=== PATIENT | male | born 1965 | race American Indian/Alaskan Native ===

== ENCOUNTER 2019-11-02 06:44 | Observation (INO) | payer BC, MEDICAID ==
[2019-11-02] MEDS ORDERED: SODIUM CHLORIDE 0.9% 500 ML 500 ML IV SCH (08:00)
[2019-11-02] MEDS ORDERED: ASPIRIN EC 325 MG TAB PO ONE (08:00)
[2019-11-02] MEDS ORDERED: HEPARIN/NS 5000 UNIT/500ML 1,000 ML IR ONE (08:11)
[2019-11-02] MEDS ORDERED: MIDAZOLAM 2 MG/2 ML INJ ONE (08:11)
[2019-11-02] MEDS ORDERED: fentaNYL 100 MCG/2 ML INJ ONE (08:11)
[2019-11-02] MEDS ORDERED: LIDOCAINE (2%) 20 MG/1 ML VIAL 20 ML MDV INFILTRATI ONE (08:12)
[2019-11-02] MEDS: NITROGLYCERIN SYRINGE 3 ML ONE ×2 (08:48→09:03)
[2019-11-02] MEDS: HEPARIN 10,000 UNITS/10 ML VIAL ONE ×3 (08:49→09:09)
[2019-11-02] MEDS: VERAPAMIL 5 MG/2 ML INJ ONE ×2 (08:49→09:03)
[2019-11-02] MEDS ORDERED: CLOPIDOGREL 300 MG TAB ONE (09:34)
[2019-11-02] MEDS ORDERED: ALUM-MAG HYDROXIDE-SIMETHICONE 200-200-20MG/5ML ORAL LIQD 30 ML ONE (09:34)
--- NOTE | 2019-11-02 10:40 | Cardiac Catherization Report ---
LEFT HEART CATHETERIZATION AND PERCUTANEOUS CORONARY AND INTRAVASCULAR ULTRASOUND AND FRACTIONAL FLOW RESERVE CLINICAL INFORMATION: This is a 54-year-old -[place] gentleman with history of cardiomyopathy that had normalized. A 2013 cardiac catheterization revealed nonobstructive coronary artery disease, 40-50% in the circumflex, dominant; mid LAD 30-40%, here for left heart catheterization for recurrent chest pain with abnormal stress test despite beta ciaran and nitrates. Procedure was done with moderate sedation, started at 9:03 a.m., finished at 9:34 a.m., 31 minutes of moderate sedation. Procedure was done via the right radial artery, sterile technique, local anesthesia, 6-Dominican radial sheath inserted. PROCEDURE FINDINGS: Left system, JL3.5 catheter, left main is large and patent, bifurcates into medium to large caliber LAD, proximal is patent, mid across 2 small diagonals which are patent, has a 90% lesion at the wraparound LAD that is patent. Circumflex AV groove is dominant, small to medium caliber proximal, mid 40-50% AV groove, focal lesions. High OM1 is small caliber vessel. OM2, OM3 are small caliber vessels. Small LPDA. RCA is a small caliber vessel, mid 90% vessel, normal LV function done in INGRID and ADAM view. LVEDP 17 mmHg, LV was 130, aortic is 131/75. No gradient across the aortic valve on pullback. Fractional flow reserve of the LAD. 1. Engaged the left system with an EBU 3.5 guiding catheter. IV heparin was given, attained ACT of 290. 2. Crossed normalized FF wire, crossed into the distal LAD and IFR was 0.84 which was significant. So, next proceeded with percutaneous coronary intervention of the LAD using the same EBU 3.5 guiding catheter, an FFF wire, placed a 2.5 x 12 mm balloon in the mid LAD, inflated at 12 atmospheres. 3. An intravascular ultrasound showed distal reference of 3 and proximal 3.0 x 3.4. 4. Then stented the mid LAD across the 2 small diagonals with a drug-eluting Xience 3.0 x 23 mm inflated at 12 atmospheres. There is mild plaque shift into the ostium of the diagonal to diagonal 1 and diagonal 2 of 30%, but continued CIRILO 3 flow. Then, post-dilated the proximal portion of the stent with a noncompliant 3.25 x 12 balloon at 16 atmospheres. 5. Excellent angiographic result, CIRILO 3 flow, reduced stenosis from 90% to 0, no embolization, continued CIRILO 3 flow into small diagonals, mild plaque shift. Coronary wire was removed. Multiple angiograms, continued CIRILO 3 flow, no dissection or perforation, good stent apposition and expansion noted. 6. A 6-Dominican guiding catheter taken over guidewire, 6-Dominican radial sheath was discontinued. Radial band applied. No hematoma, no bleeding. SUMMARY: 1. Successful PCI of the mid LAD across 2 small diagonals with a drug-eluting Xience 3.0 x 23 mm at 12 atmospheres, post-dilated the proximal portion with a 3.25 x 12. This was done confirmed with IFR of 0.84 and IVUS distal was 3.0 and proximal 3.0 x 3.2. 2. Left main patent, circumflex dominant and AV groove has focal lesions of 30-40%. Focal small OM1, OM2 and OM3 are patent. RCA small nondominant vessel, 90%, mid. Normal LV function. Post-PCI care, aspirin, Plavix 600 daily, hold metformin 48 hours. Discussed in detail with the patient and patient's family and primary general office associate. JOB# [id number] JERICHO/RJ
[2019-11-02] MEDS: METOPROLOL SUCCINATE XL 50 MG TAB PO SCH (15:17)
[2019-11-02] MEDS: LISINOPRIL 5 MG TAB PO SCH (15:18)
[2019-11-03] MEDS: ACETAMINOPHEN 325 MG TAB PO PRN ×2 (00:02→08:34)
[2019-11-03 05:16] LABS: Basophils % (Auto) 0.4 % (0.0-1.8); Eosinophils # (Auto) 0.4 K/mm3 (0.0-0.4); Eosinophils % (Auto) 3.9 % (0.0-4.3); Hematocrit 41.4 % (35.5-45.6); Hemoglobin 13.9 gm/dl (11.8-15.2); Lymphocytes # (Auto) 2.6 K/mm3 (1.2-5.4); Lymphocytes % (Auto) 27.1 % (13.4-35.0); Mean Corpuscular HGB Conc 34 % (32-34); Mean Corpuscular Volume 90 fl (84-94); Monocytes % (Auto) 10.4 % (0.0-7.3); Platelet Count 265 K/mm3 (140-440); Red Blood Count 4.59 M/mm3 (3.65-5.03)
[2019-11-03 05:35] LABS: Creatine Kinase MB 2.1 ng/mL (0.0-4.0)
[2019-11-03 05:36] LABS: BUN/Creatinine Ratio 18; Blood Urea Nitrogen 14 mg/dL (9-20); Calcium 8.7 mg/dL (8.4-10.2); Hemolysis Index 5
--- NOTE | 2019-11-03 08:46 | XRay Report ---
CHEST 1 VIEW INDICATION: post pci. COMPARISON: None FINDINGS: Support devices: None. Heart: Within normal limits. Lungs/Pleura: No acute air space or interstitial disease. Additional findings: None. IMPRESSION: No acute findings. Signer Name: Randall Quintanilla Jr, MD Signed: 11/03/2019 8:42 AM Workstation Name: [id number]
[2019-11-03] MEDS: LISINOPRIL 5 MG TAB PO SCH ×2 (09:25→12:53)
[2019-11-03] MEDS: METOPROLOL SUCCINATE XL 50 MG TAB PO SCH ×2 (09:25→12:43)
[2019-11-03] MEDS ORDERED: ASPIRIN 81 MG TAB CHEW PO SCH (10:00)
[2019-11-03] MEDS ORDERED: CLOPIDOGREL 75 MG TAB PO SCH (10:00)
--- NOTE | 2019-11-03 10:06 | Short Stay Summary ---
Short Stay Documentation Date of service: 11/03/19 - History H&P: obtained from office - Allergies and Medications Current Medications: Allergies No Known Allergies Allergy (Verified 07/16/13 07:15) Home Medications Medication Instructions Recorded Confirmed Last Taken Type Metformin HCl [Metformin] 1,000 mg PO BID 07/16/13 11/02/19 11/01/19 History lisinopriL [Lisinopril] 5 tab PO DAILY 08/04/13 11/02/19 11/01/19 History Atorvastatin [Lipitor Tab] 40 mg PO QHS 11/02/19 11/02/19 11/01/19 History Brimonidine/Timolol 0.2-0.5% 1 drop OS Q12H 11/02/19 11/02/19 11/01/19 History [Combigan 0.2-0.5%] Empagliflozin (Nf) [Jardiance (Nf)] 10 mg PO QAM 11/02/19 11/02/19 11/01/19 History Esomeprazole Magnesium [NexIUM] 40 mg PO QDAY 11/02/19 11/02/19 11/01/19 History ISOSORBIDE MONOnitrate [Imdur ER] 60 mg PO QDAY 11/02/19 11/02/19 11/01/19 History Insulin Glargine,Hum.rec.anlog 15 units SQ QHS 11/02/19 11/02/19 11/01/19 History [Lantus Solostar] Insulin Lispro [Humalog 100 15 units SQ AC 11/02/19 11/02/19 11/01/19 History UNITS/ML Kwikpen] Ketoconazole 2% [Nizoral] 1 applicatio TRANSDERMA BID 11/02/19 11/02/19 11/01/19 History Metoprolol Xl [Metoprolol 50 mg PO QDAY 11/02/19 11/02/19 11/01/19 History SUCCINATE ER TAB] Triamcinolone 0.1% [Kenalog 0.1% 1 applic TP TID 11/02/19 11/02/19 11/01/19 History OINT] acetaZOLAMIDE [Diamox TAB] 250 mg PO BID 11/02/19 11/02/19 11/01/19 History Active Medications Acetaminophen (Tylenol) 650 mg PO Q6H PRN PRN Reason: Pain, Mild (1-3) Last Admin: 11/03/19 08:34 Dose: 650 mg Documented by: Aspirin (Baby Aspirin) 81 mg PO QDAY [facility] Last Admin: 11/03/19 09:23 Dose: 81 mg Documented by: Atorvastatin Calcium (Lipitor) 40 mg PO QHS [facility] Last Admin: 11/02/19 21:38 Dose: 40 mg Documented by: Clopidogrel Bisulfate (Plavix) 75 mg PO QDAY [facility] Last Admin: 11/03/19 09:24 Dose: 75 mg Documented by: Isosorbide Mononitrate (Imdur) 60 mg PO QDAY [facility] Last Admin: 11/03/19 09:25 Dose: Not Given Documented by: Lisinopril (Zestril) 5 mg PO QDAY [facility] Last Admin: 11/03/19 09:25 Dose: Not Given Documented by: Metoprolol Succinate (Metoprolol Xl) 50 mg PO QDAY [facility] Last Admin: 11/03/19 09:25 Dose: Not Given Documented by: - Physical exam General appearance: no acute distress Integumentary: no rash, no growths, no abnormal pigmentation HEENT: Atraumatic, PERRLA Lungs: Clear to auscultation Heart: Regular rate, Normal S1, Normal S2 Gastrointestinal: normoactive bowel sounds Extremities: no ischemia, pulses intact, pulses symmetrical Neurological: Normal gait, Normal speech, Strength at 5/5 X4 ext - Brief post op/procedure progress note Date of procedure: 11/02/19 Pre-op diagnosis: CAD Post-op diagnosis: same Procedure: LHC with PCI - see dictated cath report Anesthesia: local Estimated blood loss: none Condition: stable - Disposition Condition at discharge: Good Disposition: [id number] TO HOME OR SELFCARE - Discharge Diagnoses (1) CAD (coronary artery disease) Status: Chronic (2) Stented coronary artery Status: Chronic (3) Sinus bradycardia Status: Chronic (4) Diabetes Status: Chronic Short Stay Discharge Plan Activity: advance as tolerated Diet: low fat, low cholesterol, low salt, diabetic Wound: open to air, keep clean and dry, per your surgeon's advice Additional Instructions: resume Metformin tomorrow, 11/04/2019 Follow up with: CHINO WATSON NP-C [Primary Care Provider] - 7 Days LUCERO MATTHEW MD [Staff Physician] - 7 Days ([place] office, 11/17/2019 @ 1:15PM) Prescriptions: Clopidogrel [Plavix] 75 mg PO QDAY #90 tablet
[2019-11-03] MEDS ORDERED: traMADol 50 MG TAB PO ONE (12:00)
[2019-11-03 12:05] VITALS: BP 122/68
== END 2019-11-03 12:59 | disposition home or self-care (01) ==
LOC: CATHLABREC 06:44 → 4A 09:37
PROVIDERS: ADMIT Internal Medicine; ATTEND Internal Medicine
DX: I25.10 Atherosclerotic heart disease of native coronary artery without angina pectoris (principal); R42 Dizziness and giddiness; E11.9 Type 2 diabetes mellitus without complications; I42.8 Other cardiomyopathies; I49.3 Ventricular premature depolarization; R94.31 Abnormal electrocardiogram [ECG] [EKG]; F17.200 Nicotine dependence, unspecified, uncomplicated; Z95.1 Presence of aortocoronary bypass graft; Z79.4 Long term (current) use of insulin; Z79.899 Other long term (current) drug therapy
CPT/HCPCS: 36415; 71045; 80048; 82550; 82553; 82962; 84484; 85025; 92978; 93005; 93458; 93571; 96360; 96361; A9270; C1725; C1753; C1769; C1874; C1887; C1894; C9600; G0378; J1644; J2250; J3010; J7040; 85347; 92928; Q9967

== ENCOUNTER 2021-05-06 09:00 | Observation (INO) | payer BC ==
--- NOTE | 2021-05-06 09:37 | Emergency Department Report ---
ED Chest Pain HPI - General Chief Complaint: Chest Pain Stated Complaint: DIZZINESS WITH CHEST PAIN Time Seen by Provider: 05/06/21 09:25 Source: patient Mode of arrival: Ambulatory Limitations: No Limitations - History of Present Illness Initial Comments: Chief complaint: Chest pain HPI: This is a 55-year-old male history of coronary artery disease, c ardiomyopathy, diabetes mellitus who presents with chest pain, dizziness, headache. Throughout the week patient has had chest pain dizziness daily. He has been unable to work. He decided to go to work today. He had a chest pain. He almost fell due to dizziness. He has "thick headache". Chest pain resolved with nitroglycerin. He has not had this type of headache on previous occasion. Headache is severe. 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 Guido According to electronic medical record patient underwent left heart catheterization 04/04/2020: RCA with 50 to 60% lesion, circumflex 80% lesion, diffuse disease with small caliber vessels. Patient previously underwent intervention of the mid LAD in October 2019 with drug-eluting stent according to cardiology report. MD Complaint: chest pain -: Gradual, This morning Onset: during exertion Pain Location: substernal Pain Radiation: RUE Severity scale (0 -10): 4 Quality: tightness Consistency: now resolved Improves With: nitroglycerin Other Symptoms: other (Headache dizziness near syncope) - Related Data Home Medications Medication Instructions Recorded Confirmed Last Taken Metformin HCl [Metformin] 1,000 mg PO BID 07/16/13 05/06/21 11/27/19 1 tab Atorvastatin [Lipitor] 40 mg PO QHS 11/02/19 05/06/21 11/27/19 1 tab Empagliflozin (Nf) [Jardiance (Nf)] 10 mg PO QAM 11/02/19 05/06/21 11/27/19 1 tab Esomeprazole Magnesium [NexIUM] 40 mg PO QDAY 11/02/19 05/06/21 11/27/19 1 tab Insulin Glargine,Hum.rec.anlog 15 units SQ QHS 11/02/19 05/06/21 11/27/19 [Lantus Solostar] Insulin Lispro [Humalog 100 15 units SQ AC 11/02/19 05/06/21 11/26/19 UNITS/ML Kwikpen] Ketoconazole 2% [Nizoral] 1 applicatio TRANSDERMA BID 11/02/19 05/06/21 11/01/19 Triamcinolone 0.1% [Kenalog 0.1% 1 applic TP TID 11/02/19 05/06/21 11/01/19 OINT] acetaZOLAMIDE [Diamox TAB] 250 mg PO BID 11/02/19 05/06/21 11/01/19 Previous Rx's Medication Instructions Recorded Last Taken Type Aspirin [Aspirin BABY CHEW TAB] 81 mg PO QDAY tab.chew 11/03/19 11/26/19 Rx 1 tab Clopidogrel [Plavix] 75 mg PO QDAY #90 tablet 11/03/19 11/27/19 Rx 1 tab Allergies Allergy/AdvReac Type Severity Reaction Status Date / Time No Known Allergies Allergy Verified 07/16/13 07:15 Heart Score - HEART Score History: Highly suspicious EKG: Normal Age: 45-65 Risk factors: 1-2 risk factors Troponin: < normal limit HEART Score: 4 - EKG Read Time Time EKG Completed: 09:11 EKG Read Time: 09:11 - Critical Actions Critical Actions: 4-6 pts:12-16.6% risk of adverse cardiac event. Should be admitted ED Review of Systems ROS: Stated complaint: DIZZINESS WITH CHEST PAIN Other details as noted in HPI Comment: All other systems reviewed and negative Constitutional: denies: chills, fever, malaise Respiratory: denies: cough, shortness of breath Cardiovascular: chest pain Neurological: headache, other (Dizziness) ED Past Medical Hx - Past Medical History Previous Medical History?: Yes Hx Hypertension: Yes Hx Heart Attack/AMI: No Hx Congestive Heart Failure: No Hx Diabetes: Yes Hx Deep Vein Thrombosis: No Hx Pulmonary Embolism: No Hx Renal Disease: No Hx Arthritis: No Hx Seizures: No Hx Asthma: No Hx COPD: No - Surgical History Past Surgical History?: Yes Hx Coronary Stent: Yes (October 2019) Hx Pacemaker: No Hx Cholecystectomy: No Hx Appendectomy: No Additional Surgical History: catartact - Social History Smoking Status: Never Smoker Substance Use Type: None - Medications Home Medications: Home Medications Medication Instructions Recorded Confirmed Last Taken Type Metformin HCl [Metformin] 1,000 mg PO BID 07/16/13 05/06/21 11/27/19 History 1 tab Atorvastatin [Lipitor] 40 mg PO QHS 06/05/06/21 11/27/19 History 1 tab Empagliflozin (Nf) [Jardiance (Nf)] 10 mg PO QAM 11/02/19 05/06/21 11/27/19 History 1 tab Esomeprazole Magnesium [NexIUM] 40 mg PO QDAY 11/02/19 05/06/21 11/27/19 History 1 tab Insulin Glargine,Hum.rec.anlog 15 units SQ QHS 11/02/19 05/06/21 11/27/19 History [Lantus Solostar] Insulin Lispro [Humalog 100 15 units SQ AC 11/02/19 05/06/21 11/26/19 History UNITS/ML Kwikpen] Ketoconazole 2% [Nizoral] 1 applicatio TRANSDERMA BID 11/02/19 05/06/21 11/01/19 History Triamcinolone 0.1% [Kenalog 0.1% 1 applic TP TID 11/02/19 05/06/21 11/01/19 History OINT] acetaZOLAMIDE [Diamox TAB] 250 mg PO BID 11/02/19 05/06/21 11/01/19 History Aspirin [Aspirin BABY CHEW TAB] 81 mg PO QDAY tab.chew 11/03/19 05/06/21 Rx 1 tab Clopidogrel [Plavix] 75 mg PO QDAY #90 tablet 11/03/19 05/06/21 11/27/19 Rx 1 tab ED Physical Exam - General Limitations: No Limitations General appearance: alert, in no apparent distress - Head Head exam: Present: atraumatic, normocephalic - Eye Eye exam: Present: normal appearance - ENT ENT exam: Present: mucous membranes moist - Neck Neck exam: Present: normal inspection, full ROM - Respiratory Respiratory exam: Present: normal lung sounds bilaterally. Absent: respiratory distress, wheezes, rales, rhonchi - Cardiovascular Cardiovascular Exam: Present: regular rate, normal rhythm, normal heart sounds. Absent: systolic murmur, diastolic murmur, rubs, gallop - GI/Abdominal GI/Abdominal exam: Present: soft, normal bowel sounds. Absent: distended, tenderness, guarding, rebound - Rectal Rectal exam: Present: deferred - Extremities Exam Extremities exam: Present: normal inspection - Neurological Exam Neurological exam: Present: alert, oriented X3 - Psychiatric Psychiatric exam: Present: normal affect, normal mood - Skin Skin exam: Present: warm, dry, intact, normal color. Absent: rash ED Course Vital Signs 05/06/21 05/06/21 05/06/21 09:05 09:30 09:32 Temperature 98.8 F Pulse Rate 69 64 Respiratory 18 15 Rate Blood Pressure 117/68 Blood Pressure 118/70 [Right] O2 Sat by Pulse 99 99 99 Oximetry 05/06/21 05/06/21 05/06/21 10:03 10:16 10:30 Temperature Pulse Rate 61 56 L Respiratory 19 16 Rate Blood Pressure 119/69 123/71 121/68 Blood Pressure [Right] O2 Sat by Pulse 100 100 98 Oximetry 05/06/21 05/06/21 05/06/21 10:46 11:00 11:16 Temperature Pulse Rate 57 L 59 L 56 L Respiratory 17 18 17 Rate Blood Pressure 118/64 119/76 115/68 Blood Pressure [Right] O2 Sat by Pulse 99 99 98 Oximetry 05/06/21 11:30 Temperature Pulse Rate 55 L Respiratory 17 Rate Blood Pressure 111/65 Blood Pressure [Right] O2 Sat by Pulse 99 Oximetry JAMES score - James Score Age > 65: (0) No Aspirin use within the Past 7 Days: (1) Yes 3 or more CAD Risk Factors: (1) Yes 2 or more Angina events in past 24 hrs: (1) Yes Known CAD with more than 50% Stenosis: (1) Yes Elevated Cardiac Markers: (0) No ST Deviation Greater than 0.5mm: (0) No JAMES Score: 4 ED Medical Decision Making - Lab Data Result diagrams: 05/06/21 09:57 05/06/21 09:57 Laboratory Results - last 24 hr 05/06/21 05/06/21 09:57 09:57 WBC 11.6 H RBC 5.15 H Hgb 15.0 Hct 47.9 H MCV 93 MCH 29 MCHC 31 L RDW 13.3 Plt Count 286 Lymph % (Auto) 20.1 [place] % (Auto) 8.6 H Eos % (Auto) 3.6 Baso % (Auto) 0.3 Lymph # (Auto) 2.3 [place] # (Auto) 1.0 H Eos # (Auto) 0.4 Baso # (Auto) 0.0 Seg Neutrophils % 67.4 Seg Neutrophils # 7.8 H Sodium 140 Potassium 4.6 Chloride 105.1 Carbon Dioxide 21 L Anion Gap 19 BUN 15 Creatinine 0.9 Estimated GFR > 60 BUN/Creatinine Ratio 17 Glucose 154 H Calcium 9.4 Total Bilirubin 0.40 AST 14 ALT 20 Alkaline Phosphatase 127 Troponin T < 0.010 Total Protein 7.6 Albumin 4.1 Albumin/Globulin Ratio 1.2 Lipase 31 - EKG Data -: EKG Interpreted by Me EKG shows normal: sinus rhythm, axis, intervals, QRS complexes, ST-T waves Rate: normal - EKG Data When compared to previous EKG there are: no significant change, other (EKG compared to EKG obtained 04/01/2020 unchanged) Interpretation: nonspecific ST-T wave brayan 05/06/21 09:36 EKG obtained 910 EKG interpreted by me Rate 60 bpm normal axis normal intervals nonspecific T wave pattern no ST elevation diffuse T wave flattening Q waves in the inferior leads, poor R wave progression anteriorly. 05/06/21 09:37 05/06/21 09:38 - Radiology Data Radiology results: report reviewed Patient Name: DARIEL ESCOBEDO Gender: Male Date of : 1965 Referring Provider: DIMITRY HUSSEIN Organization: [facility] Accession Number: [id number] Requested Date: May 06, 2021 09:39 Report Status: Final Requested Procedure: 1 Procedure Description: CT head/brain wo con Modality: CT Findings Reporting MD: Gibran Velasquez Dictation Time: May 06, 2021 09:11 Training And Quality Manager: Not available Sergeant Of Officers Date: CT head/brain wo con INDICATION / CLINICAL INFORMATION: 55 years Male; severe headache. TECHNIQUE: Routine CT head without contrast. All CT scans at this location are performed using CT dose reduction for ALARA by means of automated exposure control. COMPARISON: None. FINDINGS: BRAIN / INTRACRANIAL CONTENTS: There are scattered areas of decreased attenuation involving cerebral white matter, most notably along the subcortical regions. The findings are nonspecific though may reflect microvascular angiopathy. There also appears to be mild cerebral atrophy. The ventricular system is correspondingly appropriate in size and configuration. There is no clear CT evidence of acute intracranial hemorrhage or significant mass effect. ORBITS: No significant abnormality of visualized orbits. SINUSES / MASTOIDS: No significant abnormality in the visualized paranasal sinuses or mastoid air cells. CRANIOCERVICAL JUNCTION: No significant abnormality. ADDITIONAL FINDINGS: None. IMPRESSION: 1. 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 Signer Name: Gibran Velasquez MD Patient Name: DARIEL ESCOBEDO Gender: Male Date of : 1965 Referring Provider: DIMITRY HUSSEIN Organization: [facility] Accession Number: [id number] Requested Date: May 06, 2021 09:26 Report Status: Final Requested Procedure: 1 Procedure Description: XR chest 1V ap Modality: XR Findings Reporting MD: Javier Jung Dictation Time: May 06, 2021 08:54 Training And Quality Manager: Not available Sergeant Of [employer] Date: CHEST 1 VIEW 05/06/2021 8:49 AM INDICATION / CLINICAL INFORMATION: Chest Pain. COMPARISON: 04/01/20. FINDINGS: SUPPORT DEVICES: None. HEART / MEDIASTINUM: The heart size and pulmonary vasculature are normal. The aorta is normal in caliber. LUNGS / PLEURA: Low lung volumes without other pulmonary or pleural abnormality. No pneumothorax. ADDITIONAL FINDINGS: No significant additional findings. IMPRESSION: Mildly decreased lung volumes without other significant abnormality. Signer Name: Javier Jung MD Signed: 05/06/2021 8:54 AM Workstation Name: [id number] - Medical Decision Making 1. Acute coronary syndrome: Patient has had chest pain throughout the week preventing him from working. He had recurrent chest pain with near syncope today. He has associated lightheadedness and headache. I consulted Dr. Tripathi who recommended Lovenox and agreed with admission. 3. Tension headache versus anginal equivalent versus adverse effect of nitroglycerin: Patient denies headache associated with nitroglycerin on previous occasion. However he has used nitroglycerin more frequently this week. CT head rulex out intracranial hemorrhage. I do not suspect subarachnoid hemorrhage. CBC chemistry troponin unremarkable. EKG x-ray without acute findings Critical care attestation.: If time is entered above; I have spent that time in minutes in the direct care of this critically ill patient, excluding procedure time. ED Disposition Clinical Impression: Acute coronary syndrome, Tension headache Disposition: ADMITTED INPATIENT Is pt being admited?: Yes Does the pt Need Aspirin: No Condition: Stable
[2021-05-06] MEDS ORDERED: traMADol 50 MG TAB PO ONE (09:39)
[2021-05-06] MEDS ORDERED: ASPIRIN 81 MG TAB CHEW PO ONE (09:39)
[2021-05-06] MEDS ORDERED: ACETAMINOPHEN 500 MG TAB PO ONE (09:39)
--- NOTE | 2021-05-06 09:59 | XRay Report ---
CHEST 1 VIEW 05/06/2021 8:49 AM INDICATION / CLINICAL INFORMATION: Chest Pain. COMPARISON: 04/01/20. FINDINGS: SUPPORT DEVICES: None. HEART / MEDIASTINUM: The heart size and pulmonary vasculature are normal. The aorta is normal in william tam. LUNGS / PLEURA: Low lung volumes without other pulmonary or pleural abnormality. No pneumothorax. ADDITIONAL FINDINGS: No significant additional findings. IMPRESSION: Mildly decreased lung volumes without other significant abnormality. Signer Name: Javier Jung MD Signed: 05/06/2021 9:54 AM Workstation Name: [id number]
--- NOTE | 2021-05-06 10:16 | Cat Scan Report ---
CT head/brain wo con INDICATION / CLINICAL INFORMATION: 55 years Male; severe headache. TECHNIQUE: Routine CT head without contrast. All CT scans at this location are performed using CT dos e reduction for ALARA by means of automated exposure control. COMPARISON: None. FINDINGS: BRAIN / INTRACRANIAL CONTENTS: There are scattered areas of decreased attenuation involving cerebral white matter, most notably along the subcortical regions. The findings are nonspecific though may ref lect microvascular angiopathy. There also appears to be mild cerebral atrophy. The ventricular system is correspondingly appropriate in size and configuration. There is no clear CT evidence of acute int racranial hemorrhage or significant mass effect. ORBITS: No significant abnormality of visualized orbits. SINUSES / MASTOIDS: No significant abnormality in the visualized paranasal sinuses or mastoid air xavi ls. CRANIOCERVICAL JUNCTION: No significant abnormality. ADDITIONAL FINDINGS: None. IMPRESSION: 1. 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 Signer Name: Girban Velasquez MD Signed: 05/06/2021 10:11 AM Workstation Name: [id number]
[2021-05-06 11:11] LABS: Basophils % (Auto) 0.3 % (0.0-1.8); Eosinophils # (Auto) 0.4 K/mm3 (0.0-0.4); Eosinophils % (Auto) 3.6 % (0.0-4.3); Hematocrit 47.9 % (35.5-45.6); Lymphocytes # (Auto) 2.3 K/mm3 (1.2-5.4); Lymphocytes % (Auto) 20.1 % (13.4-35.0); Mean Corpuscular HGB Conc 31 % (32-34); Mean Corpuscular Volume 93 fl (84-94); Monocytes % (Auto) 8.6 % (0.0-7.3); Platelet Count 286 K/mm3 (140-440); Red Blood Count 5.15 M/mm3 (3.65-5.03); Red Cell Distribution Width 13.3 % (13.2-15.2)
[2021-05-06 11:35] LABS: Alanine Aminotransferase 20 units/L (7-56); Albumin 4.1 g/dL (3.9-5); BUN/Creatinine Ratio 17; Blood Urea Nitrogen 15 mg/dL (9-20); Calcium 9.4 mg/dL (8.4-10.2); Hemolysis Index 11
--- NOTE | 2021-05-06 12:54 | Electrocardiograph Report ---
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
[2021-05-06] MEDS ORDERED: ENOXAPARIN 100 MG/1 ML INJ SUB-Q STA (13:36)
[2021-05-06] MEDS ORDERED: ONDANSETRON 4 MG/2 ML INJ IV PRN (19:58)
[2021-05-06] MEDS ORDERED: SODIUM CHLORIDE 0.9% 1000 ML 1,000 ML IV SCH (20:00)
[2021-05-06] MEDS ORDERED: HYDROmorphone 1 MG/1 ML INJ IV PRN (20:01)
[2021-05-06] MEDS ORDERED: METOCLOPRAMIDE 10 MG/2 ML INJ IV PRN (20:01)
[2021-05-06] MEDS ORDERED: oxyCODONE /ACETAMINOPHEN 5-325MG TAB PO PRN (20:01)
[2021-05-06] MEDS ORDERED: INSULIN LISPRO 100 UNIT/ML SUB-Q ONE (20:06)
[2021-05-06] MEDS ORDERED: [UNRECOGNIZED DRUG - OTHER] SQ SCH (22:00)
[2021-05-06] MEDS ORDERED: INSULIN GLARGINE HUM REC ANLOG SQ SCH (22:00)
[2021-05-06] MEDS ORDERED: NON-FORMULARY EACH (Metformin Hcl [Metformin] 1,000 MG Tablet) PO SCH (22:00)
[2021-05-06] MEDS ORDERED: INSULN SQ SCH (22:00)
[2021-05-07] MEDS: CLOPIDOGREL 75 MG TAB PO SCH ×2 (00:02→12:55)
[2021-05-07] MEDS: HEPARIN 5,000 UNIT/1 ML VIAL SUB-Q SCH ×3 (00:03→22:08)
[2021-05-07] MEDS: INSULIN GLARGINE 100 UNITS/ML SUB-Q SCH ×2 (00:03→22:08)
[2021-05-07] MEDS: ASPIRIN 81 MG TAB CHEW PO SCH ×2 (00:11→12:55)
[2021-05-07 06:17] LABS: Basophils % (Auto) 0.3 % (0.0-1.8); Eosinophils # (Auto) 0.4 K/mm3 (0.0-0.4); Eosinophils % (Auto) 4.5 % (0.0-4.3); Hematocrit 43.7 % (35.5-45.6); Lymphocytes # (Auto) 2.5 K/mm3 (1.2-5.4); Lymphocytes % (Auto) 29.4 % (13.4-35.0); Mean Corpuscular HGB Conc 32 % (32-34); Mean Corpuscular Volume 94 fl (84-94); Monocytes # (Auto) 0.9 K/mm3 (0.0-0.8); Monocytes % (Auto) 10.9 % (0.0-7.3); Platelet Count 259 K/mm3 (140-440); Red Blood Count 4.66 M/mm3 (3.65-5.03); Red Cell Distribution Width 13.3 % (13.2-15.2)
[2021-05-07 06:34] LABS: Alanine Aminotransferase 17 units/L (7-56); Albumin 3.6 g/dL (3.9-5); BUN/Creatinine Ratio 21; Blood Urea Nitrogen 19 mg/dL (9-20); Hemolysis Index 30
--- NOTE | 2021-05-07 07:11 | History and Physical Report ---
History of Present Illness Date of examination: 05/06/21 Date of admission: 05/06/21 19:58 Chief complaint: Chest pain for 1 week History of present illness: 55-year-old male with history of hypertension, coronary artery disease, status post stent X1, insulin-dependent diabetes and hyperlipidemia comes in for recurrent chest pain of 1 year duration more so for the last 2 days. Patient is followed by [facility]. Patient also has a history of cardiomyopathy. Patient had chest pain throughout this week and is unable to work. He went to work today and had a chest pain. He almost fell because of the dizziness. Chest pain resolved with nitroglycerin. Exacerbating factor is exertion and rest is a relieving factor. Chest pain is about 5-6 on a scale of 1-10. Dull in character. No radiation. No nausea or vomiting. Heart Score - HEART Score History: Highly suspicious EKG: Normal Age: 45-65 Risk factors: 1-2 risk factors Troponin: < normal limit HEART Score: 4 - Past Medical History --Previous Medical History?: Yes --Hypertension: Yes --Diabetes: Yes - Surgical History --Past Surgical History?: Yes --Coronary Stent: Yes (October 2019) Additional Surgical History: catartact - Social History --Smoking Status: Never Smoker --Substance Use Type: None -family history --dad had asthma and mother for for unknown lesions Patient unable to elaborate Review of Systems ROS: Constitutional no weight loss or weight gain no fever or chills HEENT no sore throat no post nasal drip no diplopia Neck no neck stiffness no lymph gland enlargement Chest and lungs no shortness of breath cough or wheezing CVS chest pain for 1 week GI no nausea no vomiting no diarrhea Genitourinary system no dysuria no flank pain Musculoskeletal system no muscle pains no joint pains [employer] no syncope no seizures Skin no rash no itching Psychiatric no depression no homicidal or suicidal tendencies Hematologic no lymphedema or bruising Endocrine no polydipsia no polyuria no cold intolerance no heat intolerance Medications and Allergies Allergies Allergy/AdvReac Type Severity Reaction Status Date / Time No Known Allergies Allergy Verified 07/16/13 07:15 Home Medications Medication Instructions Recorded Confirmed Last Taken Type Metformin HCl [Metformin] 1,000 mg PO BID 07/16/13 05/06/21 11/27/19 History 1 tab Atorvastatin [Lipitor] 40 mg PO QHS 11/02/19 05/06/21 11/27/19 History 1 tab Empagliflozin (Nf) [Jardiance (Nf)] 10 mg PO QAM 11/02/19 05/06/21 11/27/19 History 1 tab Esomeprazole Magnesium [NexIUM] 40 mg PO QDAY 11/02/19 05/06/21 11/27/19 History 1 tab Insulin Glargine,Hum.rec.anlog 15 units SQ QHS 11/02/19 05/06/21 11/27/19 History [Lantus Solostar] Insulin Lispro [Humalog 100 15 units SQ AC 11/02/19 05/06/21 11/26/19 History UNITS/ML Kwikpen] Ketoconazole 2% [Nizoral] 1 applicatio TRANSDERMA BID 11/02/19 05/06/21 11/01/19 History Triamcinolone 0.1% [Kenalog 0.1% 1 applic TP TID 11/02/19 05/06/21 11/01/19 History OINT] acetaZOLAMIDE [Diamox TAB] 250 mg PO BID 11/02/19 05/06/21 11/01/19 History Aspirin [Aspirin BABY CHEW TAB] 81 mg PO QDAY tab.chew 11/03/19 05/06/21 11/26/19 Rx 1 tab Clopidogrel [Plavix] 75 mg PO QDAY #90 tablet 11/03/19 05/06/21 11/27/19 Rx 1 tab Active Meds: Active Medications Acetaminophen (Acetaminophen 325 Mg Tab) 650 mg PO Q4H PRN PRN Reason: Pain MILD(1-3)/Fever >100.5/BE Acetazolamide (Acetazolamide 250 Mg Tab) 250 mg PO BID [facility] Last Admin: 05/07/21 00:00 Dose: 250 mg Documented by: Aspirin (Aspirin 81 Mg Tab Chew) 81 mg PO QDAY [facility] Last Admin: 05/07/21 00:11 Dose: Not Given Documented by: Atorvastatin Calcium (Atorvastatin 40 Mg Tab) 40 mg PO QHS [facility] Last Admin: 05/07/21 00:19 Dose: 40 mg Documented by: Clopidogrel Bisulfate (Clopidogrel 75 Mg Tab) 75 mg PO QDAY [facility] Last Admin: 05/07/21 00:02 Dose: 75 mg Documented by: Heparin Sodium (Porcine) (Heparin 5,000 Unit/1 Ml Vial) 5,000 unit SUB-Q Q12HR [facility] Last Admin: 05/07/21 00:03 Dose: 5,000 unit Documented by: Hydromorphone HCl (Hydromorphone 1 Mg/1 Ml Inj) 0.5 mg IV Q3H PRN PRN Reason: Pain , Severe (7-10) Sodium Chloride (Nacl 0.9% 1000 Ml) 1,000 mls @ 75 mls/hr IV DIRECT [facility] Stop: 05/07/21 08:00 Insulin Glargine (Insulin Glargine 100 Units/Ml) 15 units SUB-Q QHS [facility] Last Admin: 05/07/21 00:03 Dose: 15 units Documented by: Metformin HCl (Metformin 500 Mg Tab) 1,000 mg PO BID [facility] Last Admin: 05/07/21 00:00 Dose: 1,000 mg Documented by: Metoclopramide HCl (Metoclopramide 10 Mg/2 Ml Inj) 10 mg IV Q6H PRN PRN Reason: Nausea And Vomiting Miscellaneous Medication (Empagliflozin (Nf)) 10 mg PO QAM [facility] Ondansetron HCl (Ondansetron 4 Mg/2 Ml Inj) 4 mg IV Q8H PRN PRN Reason: Nausea And Vomiting Oxycodone/Acetaminophen (Oxycodone /Acetaminophen 5-325mg Tab) 1 tab PO Q6H PRN PRN Reason: Pain, Moderate (4-6) Pantoprazole Sodium (Pantoprazole 40 Mg Tab) 40 mg PO DAILY [facility] Sodium Chloride (Sodium Chloride 0.9% 10 Ml Flush Syringe) 10 ml IV BID [facility] Last Admin: 05/07/21 00:11 Dose: 10 ml Documented by: Sodium Chloride (Sodium Chloride 0.9% 10 Ml Flush Syringe) 10 ml IV PRN PRN PRN Reason: LINE FLUSH Exam - Constitutional Vitals: Temp Pulse Resp BP Pulse Ox 98.7 F 56 L 14 101/65 100 05/06/21 19:30 05/06/21 22:30 05/07/21 05:00 05/07/21 06:06 05/07/21 06:06 General appearance: Present: no acute distress, well-nourished - EENT Eyes: Present: PERRL ENT: hearing intact, clear oral mucosa - Neck Neck: Present: supple, normal ROM - Respiratory Respiratory effort: normal Respiratory: bilateral: CTA - Cardiovascular Heart rate: 78 Rhythm: regular Heart Sounds: Present: S1 & S2. Absent: rub, click - Extremities Extremities: pulses symmetrical, No edema Peripheral Pulses: within normal limits - Abdominal General gastrointestinal: Present: soft, non-tender, non-distended, normal bowel sounds Male genitourinary: Present: normal - Integumentary Integumentary: Present: clear, warm, dry - Musculoskeletal Musculoskeletal: gait normal, strength equal bilaterally - Psychiatric Psychiatric: appropriate mood/affect, intact judgment & insight - Neurologic Neurologic: CNII-XII intact, moves all extremities HEART Score - HEART Score EKG: Normal Age: 45-65 Risk factors: 1-2 risk factors Troponin: Troponin T < 0.010 ng/mL (0.00-0.029) 05/07/21 05:13 Troponin: < normal limit - Critical Actions Critical Actions: 4-6 pts:12-16.6% risk of adverse cardiac event. Should be admitted Results - Labs CBC & Chem 7: 05/07/21 05:13 05/06/21 09:57 Labs: Laboratory Last Values WBC 8.5 K/mm3 (4.5-11.0) 05/07/21 05:13 RBC 4.66 M/mm3 (3.65-5.03) 05/07/21 05:13 Hgb 14.0 gm/dl (11.8-15.2) 05/07/21 05:13 Hct 43.7 % (35.5-45.6) 05/07/21 05:13 MCV 94 fl (84-94) 05/07/21 05:13 MCH 30 pg (28-32) 05/07/21 05:13 MCHC 32 % (32-34) 05/07/21 05:13 RDW 13.3 % (13.2-15.2) 05/07/21 05:13 Plt Count 259 K/mm3 (140-440) 05/07/21 05:13 Lymph % (Auto) 29.4 % (13.4-35.0) 05/07/21 05:13 Brooke % (Auto) 10.9 % (0.0-7.3) H 05/07/21 05:13 Eos % (Auto) 4.5 % (0.0-4.3) H 05/07/21 05:13 Baso % (Auto) 0.3 % (0.0-1.8) 05/07/21 05:13 Lymph # (Auto) 2.5 K/mm3 (1.2-5.4) 05/07/21 05:13 Brooke # (Auto) 0.9 K/mm3 (0.0-0.8) H 05/07/21 05:13 Eos # (Auto) 0.4 K/mm3 (0.0-0.4) 05/07/21 05:13 Baso # (Auto) 0.0 K/mm3 (0.0-0.1) 05/07/21 05:13 Seg Neutrophils % 54.9 % (40.0-70.0) 05/07/21 05:13 Seg Neutrophils # 4.7 K/mm3 (1.8-7.7) 05/07/21 05:13 Sodium 140 mmol/L (137-145) 05/06/21 09:57 Potassium 4.6 mmol/L (3.6-5.0) 05/06/21 09:57 Chloride 105.1 mmol/L (98-107) 05/06/21 09:57 Carbon Dioxide 21 mmol/L (22-30) L 05/06/21 09:57 Anion Gap 19 mmol/L 05/06/21 09:57 BUN 15 mg/dL (9-20) 05/06/21 09:57 Creatinine 0.9 mg/dL (0.8-1.3) 05/06/21 09:57 Estimated GFR > 60 ml/min 05/07/21 05:13 BUN/Creatinine Ratio 21 % 05/07/21 05:13 Glucose 154 mg/dL (75-100) H 05/06/21 09:57 Hemoglobin A1c 6.1 % (4-6) H 05/07/21 05:13 Calcium 9.4 mg/dL (8.4-10.2) 05/06/21 09:57 Total Bilirubin 0.40 mg/dL (0.1-1.2) 05/06/21 09:57 AST 14 units/L (5-40) 05/06/21 09:57 ALT 20 units/L (7-56) 05/06/21 09:57 Alkaline Phosphatase 127 units/L (35-129) 05/06/21 09:57 Troponin T < 0.010 ng/mL (0.00-0.029) 05/07/21 05:13 Total Protein 7.6 g/dL (6.3-8.2) 05/06/21 09:57 Albumin 4.1 g/dL (3.9-5) 05/06/21 09:57 Albumin/Globulin Ratio 1.2 % 05/07/21 05:13 Lipase 31 units/L (13-60) 05/06/21 09:57 Short CBC 05/06/21 05/07/21 Range/Units 09:57 05:13 WBC 11.6 H 8.5 (4.5-11.0) K/mm3 Hgb 15.0 14.0 (11.8-15.2) gm/dl Hct 47.9 H 43.7 (35.5-45.6) % Plt Count 286 259 (140-440) K/mm3 BMP 05/06/21 09:57 Sodium 140 Potassium 4.6 Chloride 105.1 Carbon Dioxide 21 L BUN 15 Creatinine 0.9 Glucose 154 H Calcium 9.4 Cardiac Enzymes 05/06/21 05/06/21 05/07/21 Range/Units 09:57 20:06 05:13 Troponin T < 0.010 < 0.010 < 0.010 (0.00-0.029) ng/mL Liver Function 05/06/21 Range/Units 09:57 Total Bilirubin 0.40 (0.1-1.2) mg/dL AST 14 (5-40) units/L ALT 20 (7-56) units/L Alkaline Phosphatase 127 (35-129) units/L Albumin 4.1 (3.9-5) g/dL - Imaging and Cardiology EKG: report reviewed (Normal sinus rhythm heart rate of 67/min no acute ST-T wave changes) Chest x-ray: report reviewed (No acute findings) CT Scan - head: report reviewed Imaging and Cardiology: Head CT Microvascular angiopathy as described above without CT evidence of acute intracranial hemorrhage Assessment and Plan Advance Directives: Yes (Full code) VTE prophylaxis?: Chemical Plan of care discussed with patient/family: Yes - Patient Problems (1) Acute coronary syndrome Current Visit: Yes Status: Acute Plan to address problem: Serial troponins and Lexiscan if possible Patient will have to stay till Saturday to get the Lexiscan Cardiology consult requested (2) Near syncope Current Visit: Yes Status: Acute Plan to address problem: Echocardiogram and carotid duplex scan (3) GERD (gastroesophageal reflux disease) Current Visit: No Status: Chronic Qualifiers: Esophagitis presence: without esophagitis Plan to address problem: On PPIs (4) CAD (coronary artery disease) Current Visit: No Status: Chronic Plan to address problem: Patient is on aspirin and Plavix (5) Hypertension Current Visit: Yes Status: Chronic Qualifiers: Hypertension type: primary hypertension Qualified Code(s): I10 - Essential (primary) hypertension Plan to address problem: Continue antihypertensives and adjust medications (6) IDDM (insulin dependent diabetes mellitus) Current Visit: Yes Status: Chronic Plan to address problem: Continue insulin, Jardiance and coverage Check hemoglobin A1c Accu-Cheks and coverage per protocol (7) Hyperlipidemia Current Visit: Yes Status: Chronic Qualifiers: Hyperlipidemia type: mixed hyperlipidemia Qualified Code(s): E78.2 - Mixed hyperlipidemia Plan to address problem: Continue statins (8) DVT prophylaxis Current Visit: No Status: Acute Plan to address problem: On heparin and GI prophylaxis (9) Advance care planning Current Visit: Yes Status: Acute
[2021-05-07] MEDS ORDERED: NON-FORMULARY EACH (Esomeprazole Magnesium [Nexium] 40 MG Capsule.Dr) PO SCH (10:00)
[2021-05-07] MEDS ORDERED: EMPAGLIFLOZIN 10 MG PO SCH (10:00)
--- NOTE | 2021-05-07 10:44 | Event Note ---
Patient seen and examined. Full consultation dictated. Thank you.
--- NOTE | 2021-05-07 12:04 | Progress Note ---
Assessment and Plan Assessment and plan: History of present illness: 55-year-old male with history of hypertension, coronary artery disease, status post stent X1, insulin-dependent diabetes and hyperlipidemia comes in for recurrent chest pain of 1 year duration more so for the last 2 days. Patient is followed by [facility]. Patient also has a history of cardiomyopathy. Patient had chest pain throughout this week and is unable to work. He went to work today and had a chest pain. He almost fell because of the dizziness. Chest pain resolved with nitroglycerin. Exacerbating factor is exertion and re st is a relieving factor. Chest pain is about 5-6 on a scale of 1-10. Dull in character. No radiation. No nausea or vomiting. Hospital Course 05/07: Lexiscan tomorrow. NPO midnight. Restarted home lisinsopril and imdur. Can restart jiardiance but non forumulary. Insulin coverage with home regimen of humalog and lantus as specified below. Assessment and Plan: (1) Acute coronary syndrome Current Visit: Yes Status: Acute Plan to address problem: Serial troponins and Lexiscan if possible Patient will have to stay till Saturday to get the Lexiscan Cardiology consult requested on admission. (2) Near syncope Current Visit: Yes Status: Acute Plan to address problem: Echocardiogram and carotid duplex scan (3) GERD (gastroesophageal reflux disease) Current Visit: No Status: Chronic Qualifiers: Esophagitis presence: without esophagitis Plan to address problem: On PPIs (4) CAD (coronary artery disease) Current Visit: No Status: Chronic Plan to address problem: Patient is on aspirin and Plavix Hx of stent x 1 [address] Guido Resume home lisinopril 2.5 mg po daily, imdur 30 mg po daily, atorvastatin 40 mg po qhs (5) Hypertension Current Visit: Yes Status: Chronic Qualifiers: Hypertension type: primary hypertension Qualified Code(s): I10 - Essential (primary) hypertension Plan to address problem: Continue antihypertensives and adjust medications (6) type 2 diabetes with hyperglycemia Current Visit: Yes Status: Chronic Plan to address problem: Continue insulin, Jardiance and coverage Takes Humalog 11 units tid before meals. Takes Lantus 14 units qhs. Check hemoglobin A1c Accu-Cheks and coverage per protocol (7) Hyperlipidemia Current Visit: Yes Status: Chronic Qualifiers: Hyperlipidemia type: mixed hyperlipidemia Qualified Code(s): E78.2 - Mixed hyperlipidemia Plan to address problem: Continue statins (8) DVT prophylaxis Current Visit: No Status: Acute Plan to address problem: On heparin and GI prophylaxis (9) Advance care planning Current Visit: Yes Status: Acute History Interval history: Very pleasant 55-year-old male who presented initially for chest pain. He states that he has no complaints of chest pain today. He understands that stress test will be on Saturday and will be n.p.o. at midnight. Hospitalist Physical - Physical exam Narrative exam: Physical Exam: VITAL SIGNS: Reviewed. GENERAL: The patient appears normally developed, Vital signs as documented. HEAD: No signs of head trauma. EYES: Pupils are equal. Extraocular motions intact. EARS: Hearing grossly intact. MOUTH: Oropharynx is normal. NECK: No adenopathy, no JVD. CHEST: Chest with clear breath sounds bilaterally. No wheezes, rales, or rhonchi. CARDIAC: Regular rate and rhythm. S1 and S2, without murmurs, gallops, or rubs. VASCULAR: No Edema. Peripheral pulses normal and equal in all extremities. ABDOMEN: Soft, non tender and non distended. No rebound or guarding, and no masses palpated. Bowel Sounds normal. MUSCULOSKELETAL: Good range of motion of all major joints. Extremities without clubbing, cyanosis or edema. NEUROLOGIC EXAM: Alert and oriented x 4. no focal sensory or strength deficits. PSYCHIATRIC: Mood normal. SKIN: detail exam as documented in skin assessment - Constitutional Vitals: Temp Pulse Resp BP Pulse Ox 98.6 F 52 L 15 106/65 98 05/07/21 09:03 05/07/21 09:03 05/07/21 09:03 05/07/21 09:03 05/07/21 09:03 General appearance: Present: no acute distress, well-nourished HEART Score - HEART Score EKG: Normal Age: 45-65 Risk factors: 1-2 risk factors Troponin: Troponin T < 0.010 ng/mL (0.00-0.029) 05/07/21 11:13 Troponin: < normal limit - Critical Actions Critical Actions: 4-6 pts:12-16.6% risk of adverse cardiac event. Should be admitted Results - Labs CBC & Chem 7: 05/07/21 05:13 05/07/21 05:13 Labs: Laboratory Last Values WBC 8.5 K/mm3 (4.5-11.0) 05/07/21 05:13 RBC 4.66 M/mm3 (3.65-5.03) 05/07/21 05:13 Hgb 14.0 gm/dl (11.8-15.2) 05/07/21 05:13 Hct 43.7 % (35.5-45.6) 05/07/21 05:13 MCV 94 fl (84-94) 05/07/21 05:13 MCH 30 pg (28-32) 05/07/21 05:13 MCHC 32 % (32-34) 05/07/21 05:13 RDW 13.3 % (13.2-15.2) 05/07/21 05:13 Plt Count 259 K/mm3 (140-440) 05/07/21 05:13 Lymph % (Auto) 29.4 % (13.4-35.0) 05/07/21 05:13 [place] % (Auto) 10.9 % (0.0-7.3) H 05/07/21 05:13 Eos % (Auto) 4.5 % (0.0-4.3) H 05/07/21 05:13 Baso % (Auto) 0.3 % (0.0-1.8) 05/07/21 05:13 Lymph # (Auto) 2.5 K/mm3 (1.2-5.4) 05/07/21 05:13 [place] # (Auto) 0.9 K/mm3 (0.0-0.8) H 05/07/21 05:13 Eos # (Auto) 0.4 K/mm3 (0.0-0.4) 05/07/21 05:13 Baso # (Auto) 0.0 K/mm3 (0.0-0.1) 05/07/21 05:13 Seg Neutrophils % 54.9 % (40.0-70.0) 05/07/21 05:13 Seg Neutrophils # 4.7 K/mm3 (1.8-7.7) 05/07/21 05:13 Sodium 136 mmol/L (137-145) L 05/07/21 05:13 Potassium 4.0 mmol/L (3.6-5.0) 05/07/21 05:13 Chloride 105.0 mmol/L (98-107) 05/07/21 05:13 Carbon Dioxide 17 mmol/L (22-30) L 05/07/21 05:13 Anion Gap 18 mmol/L 05/07/21 05:13 BUN 19 mg/dL (9-20) 05/07/21 05:13 Creatinine 0.9 mg/dL (0.8-1.3) 05/07/21 05:13 Estimated GFR > 60 ml/min 05/07/21 05:13 BUN/Creatinine Ratio 21 % 05/07/21 05:13 Glucose 167 mg/dL (75-100) H 05/07/21 05:13 Hemoglobin A1c 6.1 % (4-6) H 05/07/21 05:13 Calcium 9.0 mg/dL (8.4-10.2) 05/07/21 05:13 Total Bilirubin 0.40 mg/dL (0.1-1.2) 05/07/21 05:13 AST 15 units/L (5-40) 05/07/21 05:13 ALT 17 units/L (7-56) 05/07/21 05:13 Alkaline Phosphatase 109 units/L (35-129) 05/07/21 05:13 Troponin T < 0.010 ng/mL (0.00-0.029) 05/07/21 11:13 Total Protein 6.7 g/dL (6.3-8.2) 05/07/21 05:13 Albumin 3.6 g/dL (3.9-5) L 05/07/21 05:13 Albumin/Globulin Ratio 1.2 % 05/07/21 05:13 Lipase 31 units/L (13-60) 05/06/21 09:57 Active Medications - Current Medications Current Medications: Generic Name Dose Route Start Last Admin Trade Name Freq PRN Reason Stop Dose Admin Acetaminophen 650 mg 05/06/21 19:58 Acetaminophen 325 Mg Tab PO Q4H PRN Pain MILD(1-3)/Fever >100.5/BE Acetazolamide 250 mg 05/06/21 22:00 05/07/21 00:00 Acetazolamide 250 Mg Tab PO 250 mg BID [facility] Administration Aspirin 81 mg 05/06/21 21:00 05/07/21 00:11 Aspirin 81 Mg Tab Chew PO Not Given QDAY [facility] Atorvastatin Calcium 40 mg 05/06/21 22:00 05/07/21 00:19 Atorvastatin 40 Mg Tab PO 40 mg QHS [facility] Administration Clopidogrel Bisulfate 75 mg 05/06/21 21:00 05/07/21 00:02 Clopidogrel 75 Mg Tab PO 75 mg QDAY [facility] Administration Heparin Sodium (Porcine) 5,000 unit 05/06/21 22:00 05/07/21 00:03 Heparin 5,000 Unit/1 Ml Vial SUB-Q 5,000 unit Q12HR [facility] Administration Hydromorphone HCl 0.5 mg 05/06/21 20:01 Hydromorphone 1 Mg/1 Ml Inj IV Q3H PRN Pain , Severe (7-10) Insulin Glargine 15 units 05/06/21 22:00 05/07/21 00:03 Insulin Glargine 100 Units/Ml SUB-Q 15 units QHS [facility] Administration Metformin HCl 1,000 mg 05/06/21 22:00 05/07/21 00:00 Metformin 500 Mg Tab PO 1,000 mg BID [facility] Administration Metoclopramide HCl 10 mg 05/06/21 20:01 Metoclopramide 10 Mg/2 Ml Inj IV Q6H PRN Nausea And Vomiting Miscellaneous Medication 10 mg 05/07/21 10:00 Empagliflozin (Nf) PO QAM [facility] Ondansetron HCl 4 mg 05/06/21 19:58 Ondansetron 4 Mg/2 Ml Inj IV Q8H PRN Nausea And Vomiting Oxycodone/Acetaminophen 1 tab 05/06/21 20:01 Oxycodone /Acetaminophen 5-325mg Tab PO Q6H PRN Pain, Moderate (4-6) Pantoprazole Sodium 40 mg 05/07/21 10:00 Pantoprazole 40 Mg Tab PO DAILY [facility] Sodium Chloride 10 ml 05/06/21 22:00 05/07/21 00:11 Sodium Chloride 0.9% 10 Ml Flush Syringe IV 10 ml BID [facility] Administration Sodium Chloride 10 ml 05/06/21 19:58 Sodium Chloride 0.9% 10 Ml Flush Syringe IV PRN PRN LINE FLUSH
[2021-05-07] MEDS: PANTOPRAZOLE 40 MG TAB PO SCH (12:55)
[2021-05-07] MEDS: metFORMIN 500 MG TAB PO SCH ×3 (12:55→22:07)
--- NOTE | 2021-05-07 13:13 | Consultation ---
DATE OF CONSULTATION: 05/07/2021 CARDIOLOGY CONSULTATION REFERRING PHYSICIAN: Hospitalist service. [employer] ARCHITECT: Dr. Guido. REASON FOR CONSULTATION: Advice regarding chest pain. HISTORY OF PRESENT ILLNESS: The patient is a pleasant 55-year-old gentleman with known history of coronary artery disease, previous cardiomyopathy, which has normalized, between 2013 and 2019, history of diabetes. He is seen on telemetry. He is currently chest pain free. He has chest pain that he described as sharp and tight, sometimes with exertion. No syncope or presyncope. He does have shortness of breath with the episode. Has not had shortness of breath in some time. No fevers, chills, nausea or vomiting. No bleeding or hematemesis. No skin rashes, cold or heat intolerance. No blurred vision. ALLERGIES: No known drug, food, or environmental allergies. INPATIENT AND OUTPATIENT MEDICATIONS: Reviewed. REVIEW OF SYSTEMS: As per HPI. Chest pain episode has resolved. PHYSICAL EXAMINATION: VITAL SIGNS: Blood pressure is 106/65. He is afebrile. Tele reveals sinus rhythm in the 50s. No dysrhythmia. His O2 sat is 98% on room air. GENERAL: This is a middle-aged gentleman in no apparent distress, oriented x 3. HEENT: Sclerae are anicteric. PERRL. NECK: Supple. No masses, no JVD. CHEST: Clear to auscultation bilaterally. Good air movement. CARDIOVASCULAR: Regular rhythm, S1, S2. ABDOMEN: Soft, nontender, nondistended, normoactive bowel sounds in all 4 quadrants. No masses or bruits. EXTREMITIES: No cyanosis, clubbing, edema. Good peripheral pulses. SKIN: Warm, dry and intact. No rashes. IMAGING DATA: EKG reveals sinus rhythm, no acute ST segment shift. No acute changes. He also complains of a headache and thus, a head CT was also done, which shows microvascular angiopathy, but no intracranial hemorrhage. Chest x-ray shows no acute findings. LABORATORY DATA: CBC is unremarkable. Sodium is 136, potassium is 4.0, creatinine is 0.9. Troponins negative x 2. ASSESSMENT: In summary, the patient is a pleasant 55-year-old gentleman who presents with chest pain with typical and atypical features and shortness of breath, history of ischemic cardiomyopathy, multiple PCIs, clinically stable. EKG unremarkable as well as normal troponins and furthermore is asymptomatic at this point. Continue current medications, stress test and echocardiogram. Further plans contingent on these results. Thank you for this consultation. We will be happy to follow along with you. TID: [id number] RECEIPT: [id number] GUANAKO/EULA/MING
[2021-05-07] MEDS: acetaZOLAMIDE 250 MG TAB PO SCH ×3 (13:38→22:07)
[2021-05-07] MEDS: INSULIN LISPRO 100 UNIT/ML SUB-Q SCH (19:07)
[2021-05-07] MEDS: LISINOPRIL 5 MG TAB PO SCH (19:08)
[2021-05-08] MEDS ORDERED: REGADENOSON 0.4 MG/5 ML INJ IV ONE (06:53)
[2021-05-08] MEDS: INSULIN LISPRO 100 UNIT/ML SUB-Q SCH ×3 (08:00→22:00)
[2021-05-08] MEDS: metFORMIN 500 MG TAB PO SCH ×2 (10:19→12:43)
[2021-05-08] MEDS: ASPIRIN 81 MG TAB CHEW PO SCH (10:26)
[2021-05-08] MEDS: HEPARIN 5,000 UNIT/1 ML VIAL SUB-Q SCH ×2 (10:26→22:00)
[2021-05-08] MEDS: ACETAMINOPHEN 325 MG TAB PO PRN ×2 (10:49→13:53)
--- NOTE | 2021-05-08 11:06 | Nuclear Medicine Report ---
APPROVED REPORT Exam: Nuclear Stress Test Indication: Chest pain Patient Location: [address] [place], [place] [address]ETRY Room #: 483 Ht: 5 ft 11 in Wt: 155 lbs BSA: 1.89 m2 HR: 53 bpmBP: 100/57 mmHgBMI: 21.61 Rhythm: Sinus Bradycardia Stress Test Details Stress Test: Pharmacologic stress testing performed using 0.4 mg of regadenoson per 5 mL given IV over 10 seconds. Reason for pharmacologic stress test: physical limitation. HR Resting HR: 53 bpm Max HR Achieved: 116 bpm Max Heart Rate (APMHR): 166 bpm Target HR (85% APMHR): 141 bpm % of APMHR: 69 Recovery HR: 94 bpm BP Resting BP: 100/57 mmHg Max BP: 122/68 mmHg Recovery BP: 98/54 mmHg ECG Resting ECG: Sinus Bradycardia Stress ECG: Sinus Tachycardia ST Change: None Arrhythmia: None Recovery ECG: Sinus Rhythm Recovery ST Change: None Recovery Arrhythmia: None Clinical Reason for Termination: Completed protocol Stress Symptoms: Emesis NM EXAM: Myocardial Perfusion REST/STRESS Imaging Protocol: Rest Tc-99m/Stress Tc-99m 1 day Resting Data Rest SPECT myocardial perfusion imaging was performed in supine position 45 minutes following the intravenous injection of 10 mCi of Tc-99m Myoview. Time of rest injection: 0730 Pharmacologic Stress Pharmacologic stress test was performed by injecting Regadenoson 0.4 mg IV push followed by the intravenous injection of 28 mCi of Tc-99m Myoview. Time of stress injection: 1014 Gated Stress SPECT was performed 30 minutes after stress injection. The images were gated to evaluate regional wall motion and calculate left ventricular ejection fraction. Study Quality Study: excellent Lung Uptake: Normal Study Data TID = 1.17. Perfusion Wall Motion Post stress LVEF was 60%,with normal wall motion. Nuclear Conclusion ECG Findings: negative for ischemia Clinical Findings: negative for ischemia Nuclear Findings: negative for ischemia Exercise Capacity: not assessed Left Ventricular Function: normal Risk Study: low No significant ischemia noted,fixed perfusion defects noted in inferior and inferolateral segments.Normal LV systolic function noted.
--- NOTE | 2021-05-08 12:04 | Progress Note ---
Assessment and Plan 55-year-old male with a past medical history of coronary artery disease s/p multiple PCI, ischemic cardiomyopathy, diabetes report with complaint of chest pain CAD s/p PCI HTN Ischemic cardiomyopathy Lexiscan MPI stress 05/08/2021-no significant ischemia noted fixed perfusion defect noted in inferior and inferior lateral segments normal LV systolic function noted Echo 10/11/2020-EF 45 to 50%, inferior lateral wall appears moderately hypokinetic, RV systolic function is normal Plan: EKG showed no acute ischemic changes. Troponins negative x4. IL ruled out patient currently chest pain-free Patient had a negative stress test Continue present management Cardiac status is stable for discharge Patient has a follow-up appointment with Dr. Guido 05/30/2021 at 2 PM in our [place] location. Phone #[phone] Patient seen in conjunction with Dr. Shearer who agrees with this plan of care - Patient Problems (1) Hyperlipidemia Current Visit: Yes Status: Chronic Qualifiers: Hyperlipidemia type: mixed hyperlipidemia Qualified Code(s): E78.2 - Mixed hyperlipidemia (2) Hypertension Current Visit: Yes Status: Chronic Qualifiers: Hypertension type: primary hypertension Qualified Code(s): I10 - Essential (primary) hypertension (3) IDDM (insulin dependent diabetes mellitus) Current Visit: Yes Status: Chronic (4) Coronary artery disease Current Visit: No Status: Acute Qualifiers: Associated angina: with stable angina (5) CAD (coronary artery disease) Current Visit: No Status: Chronic (6) Stented coronary artery Current Visit: No Status: Chronic (7) Cardiomyopathy Current Visit: No Status: Resolved Subjective Date of service: 05/08/21 Principal diagnosis: chest pain Interval history: Patient for Lexiscan stress test this morning. Patient in no acute distress and denies any chest pain Sinus rhythm trending upper 50s to low 60s on monitor Objective Vital Signs Temp Pulse Resp BP Pulse Ox 05/08/21 10:49 16 05/08/21 10:01 101/61 05/08/21 10:00 114/63 05/08/21 09:59 122/68 05/08/21 09:58 107/71 05/08/21 09:56 98/59 05/08/21 09:29 100/57 05/08/21 07:56 97.8 F 57 L 18 95/50 100 05/08/21 04:23 97.8 F 59 L 16 101/57 97 05/08/21 00:18 97.5 F L 65 16 102/52 98 05/07/21 23:43 95 05/07/21 22:00 65 05/07/21 20:22 98.4 F 64 16 127/67 95 05/07/21 19:08 67 117/57 05/07/21 19:06 65 05/07/21 19:05 71 97 - Physical Examination General: No Apparent Distress HEENT: Positive: PERRL Neck: Positive: trachea midline Cardiac: Positive: Reg Rate and Rhythm Lungs: Positive: Normal Breath Sounds Neuro: Positive: Grossly Intact Abdomen: Positive: Soft Skin: Negative: Rash, Suspicious Lesions, Ulceration Extremities: Present: upper extr. pulses. Absent: edema - Imaging and Cardiology EKG: report reviewed (Normal sinus rhythm heart rate of 67/min no acute ST-T wave changes) - Telemetry EKG Rhythm: Sinus Rhythm - EKG Sinus rhythms and dysrhythmias: sinus rhythm
--- NOTE | 2021-05-08 12:04 | Discharge Summary ---
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 Patient is followed by [facility]. Patient also has a history of cardiomyopathy. Patient had chest pain throughout this week and is unable to work. He went to work today and had a chest pain. He almost fell because of the dizziness. Chest pain resolved with nitroglycerin. Exacerbating factor is exertion and rest is a relieving factor. Chest pain is about 5-6 on a scale of 1-10. Dull in character. No radiation. No nausea or vomiting. Hospital Course 05/07: Lexiscan tomorrow. NPO midnight. Restarted home lisinsopril and imdur. Can restart jiardiance but non forumulary. Insulin coverage with home regimen of humalog and lantus as specified below. 05/08: Lexiscan negative for ischemia. Patient can follow up as an outpatient with his primary food processing chemist. Assessment and Plan: (1) Acute coronary syndrome Current Visit: Yes Status: Acute Plan to address problem: Serial troponins and Lexiscan if possible Patient will have to stay till Saturday to get the Lexiscan Cardiology consult requested on admission. (2) Near syncope Current Visit: Yes Status: Acute Plan to address problem: Echocardiogram and carotid duplex scan (3) GERD (gastroesophageal reflux disease) Current Visit: No Status: Chronic Qualifiers: Esophagitis presence: without esophagitis Plan to address problem: On PPIs (4) CAD (coronary artery disease) Current Visit: No Status: Chronic Plan to address problem: Patient is on aspirin and Plavix Hx of stent x 1 [address] Guido Resume home lisinopril 2.5 mg po daily, imdur 30 mg po daily, atorvastatin 40 mg po qhs (5) Hypertension Current Visit: Yes Status: Chronic Qualifiers: Hypertension type: primary hypertension Qualified Code(s): I10 - Essential (primary) hypertension Plan to address problem: Continue antihypertensives and adjust medications (6) type 2 diabetes with hyperglycemia Current Visit: Yes Status: Chronic Plan to address problem: Continue insulin, Jardiance and coverage Takes Humalog 11 units tid before meals. Takes Lantus 14 units qhs. Check hemoglobin A1c Accu-Cheks and coverage per protocol (7) Hyperlipidemia Current Visit: Yes Status: Chronic Qualifiers: Hyperlipidemia type: mixed hyperlipidemia Qualified Code(s): E78.2 - Mixed hyperlipidemia Plan to address problem: Continue statins (8) DVT prophylaxis Current Visit: No Status: Acute Plan to address problem: On heparin and GI prophylaxis (9) Advance care planning Current Visit: Yes Status: Acute Disposition: 01 HOME / SELF CARE / HOMELESS Final Discharge Diagnosis (Prints w/discharge instructions): Acute coronary syndrome Time spent for discharge: 25 Core Measure Documentation - Palliative Care Palliative Care/ Comfort Measures: Not Applicable - Core Measures Any of the following diagnoses?: none Exam - Physical Exam Narrative exam: Physical Exam: VITAL SIGNS: Reviewed. GENERAL: The patient appears normally developed, Vital signs as documented. HEAD: No signs of head trauma. EYES: Pupils are equal. Extraocular motions intact. EARS: Hearing grossly intact. MOUTH: Oropharynx is normal. NECK: No adenopathy, no JVD. CHEST: Chest with clear breath sounds bilaterally. No wheezes, rales, or rhonchi. CARDIAC: Regular rate and rhythm. S1 and S2, without murmurs, gallops, or rubs. VASCULAR: No Edema. Peripheral pulses normal and equal in all extremities. ABDOMEN: Soft, non tender and non distended. No rebound or guarding, and no masses palpated. Bowel Sounds normal. MUSCULOSKELETAL: Good range of motion of all major joints. Extremities without clubbing, cyanosis or edema. NEUROLOGIC EXAM: Alert and oriented x 4. no focal sensory or strength deficits. PSYCHIATRIC: Mood normal. SKIN: detail exam as documented in skin assessment - Constitutional Vitals: Temp Pulse Resp BP Pulse Ox 97.8 F 57 L 16 101/61 100 05/08/21 07:56 05/08/21 07:56 05/08/21 10:49 05/08/21 10:01 05/08/21 07:56 Plan Activity: no restrictions Weight Bearing Status: Full Weight Bearing Diet: low fat, low cholesterol, low salt Plan of Treatment: Mr Hui. You are admitted for chest pain. Cardiology team was consulted this admission and they recommended stress test as well as echocardiogram. We completed a stress test which was negative for acute ischemia. Your echocardiogram was normal. We recommend you follow-up as an outpatient with your primary care food processing chemist Dr. Guido. Follow up with: PRIMARY CARE, [Primary Care Provider] - 7 Days
[2021-05-08] MEDS: PANTOPRAZOLE 40 MG TAB PO SCH (12:41)
[2021-05-08] MEDS: CLOPIDOGREL 75 MG TAB PO SCH (12:43)
[2021-05-08] MEDS: LISINOPRIL 5 MG TAB PO SCH ×2 (13:11→13:16)
[2021-05-08] MEDS ORDERED: SODIUM CHLORIDE 0.9% 500 ML 500 ML IV ONE ×2 (16:00)
[2021-05-08] MEDS ORDERED: SODIUM CHLORIDE 0.9% 500 ML 500 ML ONE (19:01)
[2021-05-08] MEDS: BUTALB/ACETAMINOPHEN/CAFFEINE TAB PO PRN (20:53)
[2021-05-08] MEDS: INSULIN GLARGINE 100 UNITS/ML SUB-Q SCH (22:00)
[2021-05-09] MEDS: BUTALB/ACETAMINOPHEN/CAFFEINE TAB PO PRN (04:07)
[2021-05-09] MEDS: metFORMIN 500 MG TAB PO SCH (08:02)
[2021-05-09] MEDS: INSULIN LISPRO 100 UNIT/ML SUB-Q SCH ×2 (08:03→12:04)
--- NOTE | 2021-05-09 09:07 | Discharge Summary ---
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 Patient is followed by [facility]. Patient also has a history of cardiomyopathy. Patient had chest pain throughout this week and is unable to work. He went to work today and had a chest pain. He almost fell because of the dizziness. Chest pain resolved with nitroglycerin. Exacerbating factor is exertion and rest is a relieving factor. Chest pain is about 5-6 on a scale of 1-10. Dull in character. No radiation. No nausea or vomiting. Hospital Course 05/07: Lexiscan tomorrow. NPO midnight. Restarted home lisinsopril and imdur. Can restart jiardiance but non forumulary. Insulin coverage with home regimen of humalog and lantus as specified below. 05/08: Lexiscan negative for ischemia. Patient can follow up as an outpatient with his primary credit review analyst. Patient was dizzy/headache after stress test today. Blood pressure on cuff 105/70. Suspect medication induced. WIll d/c imdur. Ordered 500 cc bolus. Given tylenol by RN. will order fiorcet as needed. Discharge was held as a result of the above symptoms. 05/09: Patient has no further dizziness and blood pressure remained stable. Therefore, patient will discharge home. Dedicated discharge time 32 minutes. Assessment and Plan: (1) Acute coronary syndrome Current Visit: Yes Status: Acute Plan to address problem: Serial troponins and Lexiscan if possible Patient will have to stay till Saturday to get the Lexiscan Cardiology consult requested on admission. (2) Near syncope Current Visit: Yes Status: Acute Plan to address problem: Echocardiogram and carotid duplex scan (3) GERD (gastroesophageal reflux disease) Current Visit: No Status: Chronic Qualifiers: Esophagitis presence: without esophagitis Plan to address problem: On PPIs (4) CAD (coronary artery disease) Current Visit: No Status: Chronic Plan to address problem: Patient is on aspirin and Plavix Hx of stent x 1 2 [address] Guido Resume home lisinopril 2.5 mg po daily, imdur 30 mg po daily, atorvastatin 40 mg po qhs (5) Hypertension Current Visit: Yes Status: Chronic Qualifiers: Hypertension type: primary hypertension Qualified Code(s): I10 - Essential (primary) hypertension Plan to address problem: Continue antihypertensives and adjust medications (6) type 2 diabetes with hyperglycemia Current Visit: Yes Status: Chronic Plan to address problem: Continue insulin, Jardiance and coverage Takes Humalog 11 units tid before meals. Takes Lantus 14 units qhs. Check hemoglobin A1c Accu-Cheks and coverage per protocol (7) Hyperlipidemia Current Visit: Yes Status: Chronic Qualifiers: Hyperlipidemia type: mixed hyperlipidemia Qualified Code(s): E78.2 - Mixed hyperlipidemia Plan to address problem: Continue statins (8) DVT prophylaxis Current Visit: No Status: Acute Plan to address problem: On heparin and GI prophylaxis Disposition: 01 HOME / SELF CARE / HOMELESS Final Discharge Diagnosis (Prints w/discharge instructions): Diabetes mellitus type 2 chest pain with etiology likely GERD, near syncope, coronary artery disease, Core Measure Documentation - Palliative Care Palliative Care/ Comfort Measures: Not Applicable - Core Measures Any of the following diagnoses?: none Exam - Constitutional Vitals: Temp Pulse Resp BP Pulse Ox 98.0 F 54 L 14 104/59 97 05/09/21 03:12 05/09/21 03:12 05/09/21 03:12 05/09/21 03:12 05/09/21 03:12 General appearance: Present: no acute distress, well-nourished - EENT Eyes: Present: PERRL ENT: hearing intact, clear oral mucosa - Neck Neck: Present: supple, normal ROM - Respiratory Respiratory effort: normal Respiratory: bilateral: CTA - Cardiovascular Heart Sounds: Present: S1 & S2. Absent: rub, click - Extremities Extremities: pulses symmetrical, No edema Peripheral Pulses: within normal limits - Abdominal General gastrointestinal: Present: soft, non-tender, non-distended, normal bowel sounds Male genitourinary: Present: normal - Integumentary Integumentary: Present: clear, warm, dry - Musculoskeletal Musculoskeletal: gait normal, strength equal bilaterally - Psychiatric Psychiatric: appropriate mood/affect, intact judgment & insight - Neurologic Neurologic: CNII-XII intact, moves all extremities Plan Activity: advance as tolerated Weight Bearing Status: Weight Bear as Tolerated Diet: regular Plan of Treatment: Mr Diaw. Martin are admitted for chest pain. Cardiology team was consulted this admission and they recommended stress test as well as echocardiogram. We completed a stress test which was negative for acute ischemia. Your echocardiogram was normal. We recommend you follow-up as an outpatient with your primary care credit review analyst Dr. Guido. Follow up with: PRIMARY CARE, [Primary Care Provider] - 7 Days
[2021-05-09] MEDS: ASPIRIN 81 MG TAB CHEW PO SCH (11:04)
[2021-05-09] MEDS: CLOPIDOGREL 75 MG TAB PO SCH (11:05)
[2021-05-09] MEDS: HEPARIN 5,000 UNIT/1 ML VIAL SUB-Q SCH (11:05)
[2021-05-09] MEDS: PANTOPRAZOLE 40 MG TAB PO SCH (11:06)
[2021-05-09] MEDS: LISINOPRIL 5 MG TAB PO SCH (11:07)
[2021-05-09 18:59] VITALS: BP 103/58
== END 2021-05-09 13:35 | disposition home or self-care (01) ==
LOC: ED 09:00 → 4A 19:58
PROVIDERS: ADMIT Internal Medicine; ATTEND Hospitalist
DX: I24.9 Acute ischemic heart disease, unspecified (principal); R55 Syncope and collapse; I10 Essential (primary) hypertension; K21.9 Gastro-esophageal reflux disease without esophagitis; I25.10 Atherosclerotic heart disease of native coronary artery without angina pectoris; I42.9 Cardiomyopathy, unspecified; E11.65 Type 2 diabetes mellitus with hyperglycemia; E78.2 Mixed hyperlipidemia; G44.209 Tension-type headache, unspecified, not intractable; Z98.49 Cataract extraction status, unspecified eye; Z79.899 Other long term (current) drug therapy; Z98.890 Other specified postprocedural states; Z79.84 Long term (current) use of oral hypoglycemic drugs; Z79.82 Long term (current) use of aspirin; Z79.4 Long term (current) use of insulin; Z95.1 Presence of aortocoronary bypass graft
CPT/HCPCS: 36415; 70450; 71045; 78452; 80053; 82962; 83036; 83690; 84484; 85025; 93005; 93017; 93306; 96372; 99285; A9502; G0378; J1644; J1650; J2785; Q9967; J1815

== ENCOUNTER 2021-12-12 16:07 | Inpatient (IN) | payer BC ==
--- NOTE | 2021-12-12 16:54 | Emergency Department Report ---
ED Chest Pain HPI - General Chief Complaint: Chest Pain Stated Complaint: CHEST PAIN PUI?: No Time Seen by Provider: 12/12/21 16:53 Source: patient Mode of arrival: Ambulatory Limitations: No Limitations - History of Present Illness Initial Comments: Pt reports chest pain over the past week intermittently. pt reports a hx of HTN and cardiac stent. pt reports the pain feels like pressure under his sternum. pt reports he has experienced episodes of dizziness. Pt tested negative on the covid test at . Severity scale (0 -10): 5 - Related Data Home Medications Medication Instructions Recorded Confirmed Last Taken Atorvastatin [Lipitor] 40 mg PO QHS 11/02/19 12/13/21 05/05/21 Esomeprazole Magnesium [NexIUM] 40 mg PO QDAY 11/02/19 12/13/21 05/05/21 Insulin Glargine,Hum.rec.anlog 15 units SQ QHS 11/02/19 12/13/21 05/05/21 [Lantus Solostar] Insulin Lispro [Humalog 100 11 units SQ TIDAC 11/02/19 12/13/21 05/05/21 UNITS/ML Kwikpen] Levocetirizine Dihydrochloride 5 mg PO QDAY 05/08/21 12/13/21 05/06/21 [Xyzal] Metformin HCl [Metformin HCl ER] 1,000 mg PO BID 05/08/21 12/13/21 05/05/21 Nitroglycerin [Nitrostat] 0.4 mg SL Q5M PRN 05/08/21 12/13/21 Unknown Ranolazine [Ranexa] 1,000 mg PO BID 05/08/21 12/13/21 05/05/21 Brimonidine/Timolol 0.2-0.5% 1 drops OS Q12H 12/13/21 12/13/21 Unknown [Combigan 0.2-0.5%] Empagliflozin [Jardiance] 10 mg PO QDAY 12/13/21 12/13/21 Unknown Previous Rx's Medication Instructions Recorded Last Taken Type Aspirin [Aspirin BABY CHEW TAB] 81 mg PO QDAY tab.chew 11/03/19 05/05/21 Rx Clopidogrel [Plavix] 75 mg PO QDAY #90 tablet 11/03/19 05/05/21 Rx lisinopriL [Zestril TAB] 2.5 mg PO QDAY tablet 05/08/21 Unknown Rx Allergies Allergy/AdvReac Type Severity Reaction Status Date / Time No Known Allergies Allergy Verified 12/13/21 11:10 Heart Score - HEART Score History: Highly suspicious EKG: Non-specific Age: 45-65 Risk factors: > 3 risk factors or hx of atherosclerotic disease Troponin: 1-3x normal limit HEART Score: 7 - EKG Read Time Time EKG Completed: 16:50 EKG Read Time: 16:50 ED Review of Systems ROS: Stated complaint: CHEST PAIN Other details as noted in HPI Comment: All other systems reviewed and negative ED Past Medical Hx - Past Medical History Previous Medical History?: Yes Hx Hypertension: Yes Hx Heart Attack/AMI: Yes Hx Congestive Heart Failure: No Hx Diabetes: Yes Hx Deep Vein Thrombosis: No Hx Pulmonary Embolism: No Hx Renal Disease: Yes Hx Arthritis: No Hx Seizures: No Hx Psychiatric Treatment: No Hx Asthma: No Hx COPD: No Hx HIV: No - Surgical History Past Surgical History?: Yes Hx Coronary Stent: Yes (October 2019) Hx Pacemaker: No Hx Cholecystectomy: No Hx Appendectomy: No Additional Surgical History: catartact - Family History Family history: other - Social History Smoking Status: Never Smoker Substance Use Type: None - Medications Home Medications: Home Medications Medication Instructions Recorded Confirmed Last Taken Type Atorvastatin [Lipitor] 40 mg PO QHS 11/02/19 12/13/21 05/05/21 History Esomeprazole Magnesium [NexIUM] 40 mg PO QDAY 11/02/19 12/13/21 05/05/21 History Insulin Glargine,Hum.rec.anlog 15 units SQ QHS 11/02/19 12/13/21 05/05/21 History [Lantus Solostar] Insulin Lispro [Humalog 100 11 units SQ TIDAC 11/02/19 12/13/21 05/05/21 History UNITS/ML Kwikpen] Aspirin [Aspirin BABY CHEW TAB] 81 mg PO QDAY tab.chew 11/03/19 12/13/21 05/05/21 Rx Clopidogrel [Plavix] 75 mg PO QDAY #90 tablet 11/03/19 12/13/21 05/05/21 Rx Levocetirizine Dihydrochloride 5 mg PO QDAY 05/08/21 12/13/2105/06/21 History [Xyzal] Metformin HCl [Metformin HCl ER] 1,000 mg PO BID 05/08/21 12/13/21 05/05/21 History Nitroglycerin [Nitrostat] 0.4 mg SL Q5M PRN 05/08/21 12/13/21 Unknown History Ranolazine [Ranexa] 1,000 mg PO BID 05/08/21 12/13/21 05/05/21 History lisinopriL [Zestril TAB] 2.5 mg PO QDAY tablet 05/08/21 12/13/21 Unknown Rx Brimonidine/Timolol 0.2-0.5% 1 drops OS Q12H 12/13/21 12/13/21 Unknown History [Combigan 0.2-0.5%] Empagliflozin [Jardiance] 10 mg PO QDAY 12/13/21 12/13/21 Unknown History ED Physical Exam - General Limitations: No Limitations General appearance: alert, in no apparent distress - Head Head exam: Present: atraumatic, normocephalic - Eye Eye exam: Present: normal appearance - ENT ENT exam: Present: mucous membranes moist - Neck Neck exam: Present: normal inspection - Respiratory Respiratory exam: Present: normal lung sounds bilaterally. Absent: respiratory distress - Cardiovascular Cardiovascular Exam: Present: regular rate, normal rhythm. Absent: systolic murmur, diastolic murmur, rubs, gallop - GI/Abdominal GI/Abdominal exam: Present: soft, normal bowel sounds - Rectal Rectal exam: Present: deferred - Extremities Exam Extremities exam: Present: normal inspection - Back Exam Back exam: Present: normal inspection - Neurological Exam Neurological exam: Present: alert, oriented X3 - Psychiatric Psychiatric exam: Present: normal affect, normal mood - Skin Skin exam: Present: warm, dry, intact, normal color. Absent: rash ED Course Vital Signs 12/12/21 12/12/21 12/13/21 16:50 23:45 03:29 Temperature 98.9 F 98.0 F Pulse Rate 57 L 57 L Respiratory 16 18 20 Rate Blood Pressure 114/65 127/77 [Right] O2 Sat by Pulse 100 100 98 Oximetry - Reevaluation(s) Reevaluation #1: MSE completed. Patient waiting for bed for evaluation CIRILO score - Cirilo Score Age > 65: (0) No Aspirin use within the Past 7 Days: (1) Yes 3 or more CAD Risk Factors: (1) Yes 2 or more Angina events in past 24 hrs: (1) Yes Known CAD with more than 50% Stenosis: (1) Yes Elevated Cardiac Markers: (0) No ST Deviation Greater than 0.5mm: (0) No CIRILO Score: 4 ED Medical Decision Making - Lab Data Result diagrams: 12/13/21 04:55 12/13/21 04:55 Critical care attestation.: If time is entered above; I have spent that time in minutes in the direct care of this critically ill patient, excluding procedure time. ED Disposition Clinical Impression: Chest pain Disposition: 30 STILL A PATIENT Is pt being admited?: Yes Does the pt Need Aspirin: No Condition: Stable
[2021-12-12 17:20] LABS: Basophils % (Auto) 0.3 % (0.0-1.8); Eosinophils # (Auto) 0.4 K/mm3 (0.0-0.4); Eosinophils % (Auto) 4.4 % (0.0-4.3); Hemoglobin 14.3 gm/dl (11.8-15.2); Lymphocytes # (Auto) 2.6 K/mm3 (1.2-5.4); Lymphocytes % (Auto) 27.2 % (13.4-35.0); Mean Corpuscular HGB Conc 33 % (32-34); Mean Corpuscular Volume 93 fl (84-94); Monocytes # (Auto) 0.9 K/mm3 (0.0-0.8); Monocytes % (Auto) 9.6 % (0.0-7.3); Platelet Count 219 K/mm3 (140-440); Red Cell Distribution Width 13.4 % (13.2-15.2)
--- NOTE | 2021-12-12 17:27 | XRay Report ---
CHEST 2 VIEWS INDICATION / CLINICAL INFORMATION: Chest Pain. COMPARISON: 05/06/2021 FINDINGS: SUPPORT DEVICES: None. HEART / MEDIASTINUM: No significant abnormality. LUNGS / PLEURA: No significant pulmonary or pleural abnormality. No pneumothorax. ADDITIONAL FINDINGS: No significant additional findings. IMPRESSION: 1. No acute findings. Signer Name: Wisam Terrazas MD Signed: 12/12/2021 5:23 PM Workstation Name: [id number]
[2021-12-12 17:36] LABS: Alanine Aminotransferase 13 units/L (7-56); Albumin 3.9 g/dL (3.9-5); BUN/Creatinine Ratio 14; Blood Urea Nitrogen 14 mg/dL (9-20); Calcium 8.7 mg/dL (8.4-10.2); Hemolysis Index 9
--- NOTE | 2021-12-12 23:55 | Emergency Department Report ---
ED Chest Pain HPI - General Chief Complaint: Chest Pain Stated Complaint: CHEST PAIN Time Seen by Provider: 12/12/21 16:53 Source: patient Mode of arrival: Ambulatory Limitations: No Limitations - History of Present Illness Initial Comments: 56-year-old male multiple medical history including diabetes, hypertension, CAD, angina, ischemic cardiomyopathy with coronary artery stents presents to the emergency department with chest pain. Patient reports for a week has been experiencing intermittent pain in his right chest, patient is unable to describe the pain but he states "I just do not feel myself". Pain is nonradiating and, reports associating dizziness, sometimes will break out in sweats. States has been going on for a week, not improved with nothing or worsens with nothing, no shortness of breath, no swelling of the extremities, no fever cough cold congestion, no headache, no drug use. Had his last stents placed sometime in "2018 or 2019". [employer] Specialist is Dr. Guido at [facility] MD Complaint: chest pain -: week(s) (1) Severity scale (0 -10): 5 Worsens With: nothing Treatments Prior to Arrival: none - Related Data Home Medications Medication Instructions Recorded Confirmed Last Taken Atorvastatin [Lipitor] 40 mg PO QHS 11/02/19 12/13/21 05/05/21 Esomeprazole Magnesium [NexIUM] 40 mg PO QDAY 11/02/19 12/13/21 05/05/21 Insulin Glargine,Hum.rec.anlog 15 units SQ QHS 11/02/19 12/13/21 05/05/21 [Lantus Solostar] Insulin Lispro [Humalog 100 11 units SQ TIDAC 11/02/19 12/13/21 05/05/21 UNITS/ML Kwikpen] Levocetirizine Dihydrochloride 5 mg PO QDAY 05/08/21 12/13/21 05/06/21 [Xyzal] Metformin HCl [Metformin HCl ER] 1,000 mg PO BID 05/08/21 12/13/21 05/05/21 Nitroglycerin [Nitrostat] 0.4 mg SL Q5M PRN 05/08/21 12/13/21 Unknown Ranolazine [Ranexa] 1,000 mg PO BID 05/08/21 12/13/21 05/05/21 Brimonidine/Timolol 0.2-0.5% 1 drops OS Q12H 12/13/21 12/13/21 Unknown [Combigan 0.2-0.5%] Empagliflozin [Jardiance] 10 mg PO QDAY 12/13/21 12/13/21 Unknown Previous Rx's Medication Instructions Recorded Last Taken Type Aspirin [Aspirin BABY CHEW TAB] 81 mg PO QDAY tab.chew 11/03/19 05/05/21 Rx Clopidogrel [Plavix] 75 mg PO QDAY #90 tablet 11/03/19 05/05/21 Rx lisinopriL [Zestril TAB] 2.5 mg PO QDAY tablet 05/08/21 Unknown Rx Gabapentin 100 mg PO Q8HR 30 Days #90 capsule 12/14/21 Unknown Rx Allergies Allergy/AdvReac Type Severity Reaction Status Date / Time No Known Allergies Allergy Verified 12/13/21 11:10 Heart Score - HEART Score History: Moderately suspicious EKG: Non-specific Age: 45-65 Risk factors: > 3 risk factors or hx of atherosclerotic disease Troponin: 1-3x normal limit HEART Score: 6 - EKG Read Time Time EKG Completed: 06:48 EKG Read Time: 06:52 - Critical Actions Critical Actions: 4-6 pts:12-16.6% risk of adverse cardiac event. Should be admitted ED Review of Systems ROS: Stated complaint: CHEST PAIN Other details as noted in HPI Comment: All other systems reviewed and negative Constitutional: malaise, weakness ENT: as per HPI Respiratory: denies: shortness of breath Cardiovascular: chest pain Gastrointestinal: denies: abdominal pain, nausea Skin: as per HPI Neurological: denies: headache, weakness, abnormal gait ED Past Medical Hx - Past Medical History Previous Medical History?: Yes Hx Hypertension: Yes Hx Heart Attack/AMI: Yes Hx Congestive Heart Failure: No Hx Diabetes: Yes Hx Deep Vein Thrombosis: No Hx Pulmonary Embolism: No Hx Renal Disease: Yes Hx Arthritis: No Hx Seizures: No Hx Psychiatric Treatment: No Hx Asthma: No Hx COPD: No Hx HIV: No - Surgical History Past Surgical History?: Yes Hx Coronary Stent: Yes (October 2019) Hx Pacemaker: No Hx Cholecystectomy: No Hx Appendectomy: No Additional Surgical History: catartact - Social History Smoking Status: Never Smoker Substance Use Type: None - Medications Home Medications: Home Medications Medication Instructions Recorded Confirmed Last Taken Type Atorvastatin [Lipitor] 40 mg PO QHS 11/02/19 12/13/21 05/05/21 History Esomeprazole Magnesium [NexIUM] 40 mg PO QDAY 11/02/19 12/13/21 05/05/21 History Insulin Glargine,Hum.rec.anlog 15 units SQ QHS 11/02/19 12/13/21 05/05/21 History [Lantus Solostar] Insulin Lispro [Humalog 100 11 units SQ TIDAC 11/02/19 12/13/21 05/05/21 History UNITS/ML Kwikpen] Aspirin [Aspirin BABY CHEW TAB] 81 mg PO QDAY tab.chew 11/03/19 12/13/21 05/05/21 Rx Clopidogrel [Plavix] 75 mg PO QDAY #90 tablet 11/03/19 12/13/21 05/05/21 Rx Levocetirizine Dihydrochloride 5 mg PO QDAY 05/08/21 12/13/21 05/06/21 History [Xyzal] Metformin HCl [Metformin HCl ER] 1,000 mg PO BID 05/08/21 12/13/21 05/05/21 History Nitroglycerin [Nitrostat] 0.4 mg SL Q5M PRN 05/08/21 12/13/21 Unknown History Ranolazine [Ranexa] 1,000 mg PO BID 05/08/21 12/13/21 05/05/21 History lisinopriL [Zestril TAB] 2.5 mg PO QDAY tablet 05/08/21 12/13/21 Unknown Rx Brimonidine/Timolol 0.2-0.5% 1 drops OS Q12H 12/13/21 12/13/21 Unknown History [Combigan 0.2-0.5%] Empagliflozin [Jardiance] 10 mg PO QDAY 12/13/21 12/13/21 Unknown History Gabapentin 100 mg PO Q8HR 30 Days #90 capsule 12/14/21 Unknown Rx ED Physical Exam - General Limitations: No Limitations General appearance: in no apparent distress - Head Head exam: Present: atraumatic - Eye Eye exam: Present: normal appearance Pupils: Present: normal accommodation - ENT ENT exam: Present: normal exam, normal orophraynx - Neck Neck exam: Present: normal inspection - Respiratory Respiratory exam: Present: normal lung sounds bilaterally. Absent: respiratory distress, wheezes - Cardiovascular Cardiovascular Exam: Present: regular rate, normal rhythm, normal heart sounds - GI/Abdominal GI/Abdominal exam: Present: soft. Absent: distended, tenderness ED Course Vital Signs 12/12/21 12/12/21 12/13/21 16:50 23:45 03:29 Temperature 98.9 F 98.0 F Pulse Rate 57 L 57 L Respiratory 16 18 20 Rate Blood Pressure 114/65 127/77 [Right] O2 Sat by Pulse 100 100 98 Oximetry - Reevaluation(s) Reevaluation #1: 12/12/21 23:55 Resting calmly in bed awaiting second Trope, cardiology consult for Reevaluation #2: 12/13/21 0230- Patient has remained stable throughout ED course quietly asleep in bed. Second troponin negative, spoke with the cold type artist on-call for his cold type artist Dr. Aysha Stafford, and recommended admit to observation, will see patient in the day". Of communicated this with patient and he agrees. [id number] spoke with the hospitalist on-call regarding admission, patient is admitted to medicine services Dr. Danielle. CIRILO score - Cirilo Score Age > 65: (0) No Aspirin use within the Past 7 Days: (1) Yes 3 or more CAD Risk Factors: (1) Yes 2 or more Angina events in past 24 hrs: (1) Yes Known CAD with more than 50% Stenosis: (1) Yes Elevated Cardiac Markers: (0) No ST Deviation Greater than 0.5mm: (0) No CIRILO Score: 4 ED Medical Decision Making - Lab Data Result diagrams: 12/13/21 04:55 12/13/21 04:55 - EKG Data -: EKG Interpreted by Me EKG shows normal: sinus rhythm Rate: bradycardia - EKG Data When compared to previous EKG there are: previous EKG unavailable Interpretation: no acute changes - Radiology Data Radiology results: report reviewed - Medical Decision Making 56-year-old male multiple medical history including diabetes, hypertension, CAD, angina, ischemic cardiomyopathy with coronary artery stents presents to the emergency department with chest pain. Patient reports for a week has been experiencing intermittent pain in his right chest, patient is unable to describe the pain but he states "I just do not feel myself". Pain is nonradiating and, reports associating dizziness, sometimes will break out in sweats. Serial troponin is negative, heart score greater than 4. Will admit for further evaluation and work-up. Patient Critical care attestation.: If time is entered above; I have spent that time in minutes in the direct care of this critically ill patient, excluding procedure time. ED Disposition Clinical Impression: Chest pain Disposition: ADMITTED INPATIENT Is pt being admited?: Yes Does the pt Need Aspirin: Yes Condition: Stable
[2021-12-13] MEDS ORDERED: traMADol 50 MG TAB PO PRN (03:07)
[2021-12-13] MEDS ORDERED: ACETAMINOPHEN 325 MG TAB PO PRN (03:07)
[2021-12-13] MEDS ORDERED: MORPHINE 2 MG/1 ML INJ IV PRN (03:07)
[2021-12-13] MEDS ORDERED: NITROGLYCERIN 0.4 MG TAB SUBL SL PRN (03:07)
[2021-12-13] MEDS ORDERED: BUTALB/ACETAMINOPHEN/CAFFEINE TAB PO PRN (03:09)
[2021-12-13] MEDS ORDERED: DEXTROSE 50% IN WATER (25GM) 50 ML SYRINGE IV PRN (03:11)
[2021-12-13] MEDS ORDERED: SODIUM CHLORIDE 0.9% 1000 ML 1,000 ML IV SCH (03:15)
--- NOTE | 2021-12-13 03:17 | History and Physical Report ---
History of Present Illness Date of examination: 12/13/21 Date of admission: 12/13/21 Chief complaint: Chest pain History of present illness: 56-year-old male with history of diabetes, hypertension, CAD, angina, CHF, coronary artery stents was brought to the emergency room because of chest pain for 1 week. Chest pain is intermittent pain in his right chest, chest, "I just do not feel myself". Pain is nonradiating and, reports associating dizziness, sometimes will break out in sweats. States has been going on for a week, not improved with nothing or worsens with nothing, no shortness of breath, no swelling of the extremities, no fever cough cold congestion, no headache, no drug use In the emergency room initial cardiac enzyme is negative troponin is 0.010. We will admit the patient will consult cardiology for evaluation Past History Past Medical History: acute [place], diabetes, hypertension, renal failure Past Surgical History: Other (Coronary stent October 2019, cataract surgery) Social history: no significant social history Family history: hypertension Medications and Allergies Allergies Allergy/AdvReac Type Severity Reaction Status Date / Time No Known Allergies Allergy Verified 05/08/21 14:46 Home Medications Medication Instructions Recorded Confirmed Last Taken Type Atorvastatin [Lipitor] 40 mg PO QHS 11/02/19 05/08/21 05/05/21 History Empagliflozin (Nf) [Jardiance (Nf)] 10 mg PO QAM 11/02/19 05/08/21 05/05/21 History Esomeprazole Magnesium [NexIUM] 40 mg PO QDAY 11/02/19 05/08/21 05/05/21 History Insulin Glargine,Hum.rec.anlog 15 units SQ QHS 11/02/19 05/08/21 05/05/21 History [Lantus Solostar] Insulin Lispro [Humalog 100 11 units SQ TIDAC 11/02/19 05/08/21 05/05/21 History UNITS/ML Kwikpen] acetaZOLAMIDE [Diamox TAB] 250 mg PO BID 11/02/19 05/08/21 05/05/21 History Aspirin [Aspirin BABY CHEW TAB] 81 mg PO QDAY tab.chew 11/03/19 05/08/21 05/05/21 Rx Clopidogrel [Plavix] 75 mg PO QDAY #90 tablet 11/03/19 05/08/21 05/05/21 Rx ISOSORBIDE MONOnitrate [Imdur ER] 30 mg PO QDAY tablet 05/08/21 Unknown Rx Levocetirizine Dihydrochloride 5 mg PO QDAY 05/08/21 05/08/21 05/06/21 History [Xyzal] Metformin HCl [Metformin HCl ER] 1,000 mg PO BID 05/08/21 05/08/21 05/05/21 History Nitroglycerin [Nitrostat] 0.4 mg SL Q5M PRN 05/08/21 05/08/21 Unknown History Ranolazine [Ranexa] 1,000 mg PO BID 05/08/21 05/08/21 05/05/21 History lisinopriL [Zestril TAB] 2.5 mg PO QDAY tablet 05/08/21 Unknown Rx Butalb/Acetaminophen/Caffeine 1 cap PO Q6HR PRN #8 cap 05/09/21 Unknown Rx [Fioricet 50-300-40 mg CAP] metFORMIN [Glucophage] 1,000 mg PO BIDDIAB tablet 05/09/21 Unknown Rx Active Meds: Active Medications Acetaminophen (Acetaminophen 325 Mg Tab) 650 mg PO Q6H PRN PRN Reason: Pain, Mild (1-3) Acetazolamide (Acetazolamide 250 Mg Tab) 250 mg PO BID [facility] Aspirin (Aspirin 81 Mg Tab Chew) 81 mg PO QDAY [facility] Atorvastatin Calcium (Atorvastatin 40 Mg Tab) 40 mg PO QHS [facility] Clopidogrel Bisulfate (Clopidogrel 75 Mg Tab) 75 mg PO QDAY [facility] Dextrose (Dextrose 50% In Water (25gm) 50 Ml Syringe) 50 ml IV Q30MIN PRN; Protocol PRN Reason: Hypoglycemia Heparin Sodium (Porcine) (Heparin 5,000 Unit/1 Ml Vial) 5,000 unit SUB-Q Q12HR [facility] Sodium Chloride (Nacl 0.9% 1000 Ml) 1,000 mls @ 100 mls/hr IV DIRECT [facility] Insulin Human Lispro (Insulin Lispro 100 Unit/Ml) 0 unit SUB-Q Q6HR [facility]; Protocol Isosorbide Mononitrate (Isosorbide Mononitrate Er 30 Mg Tab) 30 mg PO QDAY [facility] Lisinopril (Lisinopril 5 Mg Tab) 2.5 mg PO QDAY [facility] Miscellaneous Medication (Butalb/Acetaminophen/Caffeine [Fioricet 50-300-40 Mg Cap]) 1 cap PO Q6HR PRN PRN Reason: Headache Miscellaneous Medication (Levocetirizine Dihydrochloride [Xyzal]) 5 mg PO QDAY [facility] Morphine Sulfate (Morphine 4 Mg/1 Ml Inj) 2 mg IV Q5MIN PRN PRN Reason: Chest Pain unrelieved by NTG Nitroglycerin (Nitroglycerin 0.4 Mg Tab Subl) 0.4 mg SL Q5M PRN PRN Reason: Chest Pain Pantoprazole Sodium (Pantoprazole 40 Mg Tab) 40 mg PO QDAY [facility] Sodium Chloride (Sodium Chloride 0.9% 10 Ml Flush Syringe) 10 ml IV PRN PRN PRN Reason: LINE FLUSH Tramadol HCl (Tramadol 50 Mg Tab) 50 mg PO Q6H PRN PRN Reason: Pain, Moderate (4-6) Review of Systems All systems: negative Constitutional: malaise Cardiovascular: chest pain Exam - Constitutional Vitals: Temp Pulse Resp BP Pulse Ox 98.0 F 57 L 18 127/77 100 12/12/21 23:45 12/12/21 23:45 12/12/21 23:45 12/12/21 23:45 12/12/21 23:45 General appearance: Present: no acute distress, well-nourished - EENT Eyes: Present: PERRL ENT: hearing intact, clear oral mucosa - Neck Neck: Present: supple, normal ROM - Respiratory Respiratory effort: normal Respiratory: bilateral: CTA - Cardiovascular Heart Sounds: Present: S1 & S2. Absent: rub, click - Extremities Extremities: pulses symmetrical, No edema Peripheral Pulses: within normal limits - Abdominal General gastrointestinal: Present: soft, non-tender, non-distended, normal bowel sounds Male genitourinary: Present: normal - Integumentary Integumentary: Present: clear, warm, dry - Musculoskeletal Musculoskeletal: gait normal, strength equal bilaterally - Psychiatric Psychiatric: appropriate mood/affect, intact judgment & insight - Neurologic Neurologic: CNII-XII intact, moves all extremities HEART Score - HEART Score Troponin: Troponin T < 0.010 ng/mL (0.00-0.029) 12/12/21 23:11 Results - Labs CBC & Chem 7: 12/12/21 16:58 12/12/21 16:58 Labs: Laboratory Last Values WBC 9.6 K/mm3 (4.5-11.0) 12/12/21 16:58 RBC 4.60 M/mm3 (3.65-5.03) 12/12/21 16:58 Hgb 14.3 gm/dl (11.8-15.2) 12/12/21 16:58 Hct 43.0 % (35.5-45.6) 12/12/21 16:58 MCV 93 fl (84-94) 12/12/21 16:58 MCH 31 pg (28-32) 12/12/21 16:58 MCHC 33 % (32-34) 12/12/21 16:58 RDW 13.4 % (13.2-15.2) 12/12/21 16:58 Plt Count 219 K/mm3 (140-440) 12/12/21 16:58 Lymph % (Auto) 27.2 % (13.4-35.0) 12/12/21 16:58 Gregory % (Auto) 9.6 % (0.0-7.3) H 12/12/21 16:58 Eos % (Auto) 4.4 % (0.0-4.3) H 12/12/21 16:58 Baso % (Auto) 0.3 % (0.0-1.8) 12/12/21 16:58 Lymph # (Auto) 2.6 K/mm3 (1.2-5.4) 12/12/21 16:58 Gregory # (Auto) 0.9 K/mm3 (0.0-0.8) H 12/12/21 16:58 Eos # (Auto) 0.4 K/mm3 (0.0-0.4) 12/12/21 16:58 Baso # (Auto) 0.0 K/mm3 (0.0-0.1) 12/12/21 16:58 Seg Neutrophils % 58.5 % (40.0-70.0) 12/12/21 16:58 Seg Neutrophils # 5.6 K/mm3 (1.8-7.7) 12/12/21 16:58 Sodium 135 mmol/L (137-145) L 12/12/21 16:58 Potassium 3.9 mmol/L (3.6-5.0) 12/12/21 16:58 Chloride 101.5 mmol/L (98-107) 12/12/21 16:58 Carbon Dioxide 23 mmol/L (22-30) 12/12/21 16:58 Anion Gap 14 mmol/L 12/12/21 16:58 BUN 14 mg/dL (9-20) 12/12/21 16:58 Creatinine 1.0 mg/dL (0.8-1.3) 12/12/21 16:58 Estimated GFR > 60 ml/min 12/12/21 16:58 BUN/Creatinine Ratio 14 % 12/12/21 16:58 Glucose 172 mg/dL (75-100) H 12/12/21 16:58 Calcium 8.7 mg/dL (8.4-10.2) 12/12/21 16:58 Total Bilirubin 0.40 mg/dL (0.1-1.2) 12/12/21 16:58 AST 13 units/L (5-40) 12/12/21 16:58 ALT 13 units/L (7-56) 12/12/21 16:58 Alkaline Phosphatase 94 units/L (35-129) 12/12/21 16:58 Troponin T < 0.010 ng/mL (0.00-0.029) 12/12/21 23:11 Total Protein 7.1 g/dL (6.3-8.2) 12/12/21 16:58 Albumin 3.9 g/dL (3.9-5) 12/12/21 16:58 Albumin/Globulin Ratio 1.2 % 12/12/21 16:58 - Imaging and Cardiology Chest x-ray: report reviewed Assessment and Plan VTE prophylaxis?: Chemical Plan of care discussed with patient/family: Yes - Patient Problems (1) Acute coronary syndrome Current Visit: No Status: Acute Plan to address problem: Admit the patient to the medical telemetry. Aspirin 81 mg p.o. daily. Plavix 75 mg p.o. daily. Lipitor 40 mg p.o. daily. Serial cardiac enzymes. Echocardiogram. Cardiology evaluation (2) Coronary artery disease Current Visit: No Status: Acute Plan to address problem: Aspirin 81 mg p.o. daily. Plavix 75 mg p.o. daily. Lipitor 40 mg p.o. daily. Serial cardiac enzymes. Echocardiogram. Cardiology evaluation (3) Diastolic CHF Current Visit: No Status: Acute Qualifiers: Plan to address problem: Stable. Avoid fluid overload. Daily weight. Maintain input output. Echocardiogram. Continue home medication. Cardiology evaluation (4) Diabetes Current Visit: No Status: Chronic Plan to address problem: Accu-Chek every 6 hours with Humalog moderate dose coverage. Continue home medication. Diabetic education (5) GERD (gastroesophageal reflux disease) Current Visit: No Status: Chronic Qualifiers: Plan to address problem: Protonix 40 mg p.o. daily. We will continue the home medication (6) Hyperlipidemia Current Visit: No Status: Chronic Qualifiers: Plan to address problem: Lipitor 40 mg p.o. daily. We will recheck the lipid panel (7) DVT prophylaxis Current Visit: Yes Status: Acute Plan to address problem: Heparin 5000 units subcu every 12 hours for DVT prophylaxis. Protonix 40 mg p.o. daily for GI prophylaxis. Patient is a full code
[2021-12-13] MEDS: INSULIN LISPRO 100 UNIT/ML SUB-Q SCH ×3 (05:57→18:37)
[2021-12-13 08:19] LABS: Basophils % (Auto) 0.4 % (0.0-1.8); Eosinophils # (Auto) 0.4 K/mm3 (0.0-0.4); Eosinophils % (Auto) 5.2 % (0.0-4.3); Hematocrit 43.6 % (35.5-45.6); Hemoglobin 14.1 gm/dl (11.8-15.2); Lymphocytes # (Auto) 2.5 K/mm3 (1.2-5.4); Lymphocytes % (Auto) 29.4 % (13.4-35.0); Mean Corpuscular HGB Conc 32 % (32-34); Mean Corpuscular Volume 95 fl (84-94); Monocytes % (Auto) 11.8 % (0.0-7.3); Platelet Count 221 K/mm3 (140-440); Red Blood Count 4.61 M/mm3 (3.65-5.03); Red Cell Distribution Width 13.2 % (13.2-15.2)
[2021-12-13 08:34] LABS: Chol/HDL Ratio 3.09 %
--- NOTE | 2021-12-13 08:44 | Progress Note ---
Assessment and Plan Assessment and plan: History of present illness: 56-year-old male with history of diabetes, hypertension, CAD, angina, CHF, coronary artery stents was brought to the emergency room because of chest pain for 1 week. Chest pain is intermittent pain in his right chest, chest, "I just do not feel myself". Pain is nonradiating and, reports associating dizziness, sometimes will break out in sweats. States has been going on for a week, not improved with nothing or worsens with nothing, no shortness of breath, no swelling of the extremities, no fever cough cold congestion, no headache, no drug use In the emergency room initial cardiac enzyme is negative troponin is 0.010. We will admit the patient will consult cardiology for evaluation Hospital course: 12/13: Chest pain resolved on my encounter. patient has prior NM stress and echo completed in apr 2021. Both were normal studies. D/w cardiology who recommends observe overnight. Troponin and d-dimer ordered. Resume home meds. Obtain orhtostatic vitals. Anticipate d/c tomorrow. Assessment and Plan: (1) Acute coronary syndrome Current Visit: No Status: Acute Plan to address problem: -Admit the patient to the medical telemetry. -EKG no acute findings of ischemia. -Aspirin 81 mg p.o. daily. Plavix 75 mg p.o. daily. Lipitor 40 mg p.o. daily. -Serial cardiac enzymes negative x 3 thus far. -Cardiology evaluation: follows with Dr Lata JUAREZ, [facility] consulted. -Lexiscan MPI stress 05/08/2021-no significant ischemia noted fixed perfusion defect noted in inferior and inferior lateral segments normal LV systolic function noted -Echo 10/11/2020-EF 45 to 50%, inferior lateral wall appears moderately hypokinetic, RV systolic function is normal -Cardiac cath 04/04/[id number] LV with akinetic to dyskinetic post anterior lateral wall. Overall EF is preserved in the range of 50 to 55%. Widely patent mid LAD stent noted with 50% distal circumflex lesion and dominant circumflex artery. However distal vessel is small caliber less than 2 mm -Ortho static vitals ordered - D-dimer ordered due to c/o leg pain, if elevated, may consider CTA chest -Resume home Lisinopril 2.5 mg p.o. daily, Imdur 30 mg p.o. daily, Ranexa 1000 mg p.o. twice daily, Plavix, atorvastatin 40 mg p.o. nightly -Avoid BB at tihs time, patient Sinus josep on tele. (2) Coronary artery disease Current Visit: No Status: Acute Plan to address problem: Aspirin 81 mg p.o. daily. Plavix 75 mg p.o. daily. Lipitor 40 mg p.o. daily. Serial cardiac enzymes. Echocardiogram. Cardiology evaluation (3) Diastolic CHF Current Visit: No Status: Acute Qualifiers: Plan to address problem: Stable. Avoid fluid overload. Daily weight. Maintain input output. Echocardiogram. Continue home medication. Cardiology evaluation (4) Diabetes Current Visit: No Status: Chronic Plan to address problem: Accu-Chek every 6 hours with Humalog moderate dose coverage. Continue home medication. Diabetic education (5) GERD (gastroesophageal reflux disease) Current Visit: No Status: Chronic Qualifiers: Plan to address problem: Protonix 40 mg p.o. daily. We will continue the home medication (6) Hyperlipidemia Current Visit: No Status: Chronic Qualifiers: Plan to address problem: Lipid panel: LDL: 54 Lipitor 40 mg p.o. daily. We will recheck the lipid panel (7) DVT prophylaxis Current Visit: Yes Status: Acute Plan to address problem: Heparin 5000 units subcu every 12 hours for DVT prophylaxis. Protonix 40 mg p.o. daily for GI prophylaxis. Patient is a full code #Advance care planning Disease education conducted, care plan discussed, diagnoses discussed, prognosis discussed, patient is full code, patient acknowledges understanding and agree with care plan, +30 minutes. History Interval history: Patient seen and evaluated at bedside. Denies acute chest pain. Denies chest pain, palpitation, nausea, vomiting, jaw pain, shoulder pain. Hospitalist Physical - Physical exam Narrative exam: Physical Exam: VITAL SIGNS: Reviewed. GENERAL: The patient appears normally developed, Vital signs as documented. HEAD: No signs of head trauma. EYES: Pupils are equal. Extraocular motions intact. EARS: Hearing grossly intact. MOUTH: Oropharynx is normal. NECK: No adenopathy, no JVD. CHEST: Chest with clear breath sounds bilaterally. No wheezes, rales, or rhonchi. CARDIAC: Regular rate and rhythm. S1 and S2, without murmurs, gallops, or rubs. VASCULAR: No Edema. Peripheral pulses normal and equal in all extremities. ABDOMEN: Soft, non tender and non distended. No rebound or guarding, and no masses palpated. Bowel Sounds normal. MUSCULOSKELETAL: Good range of motion of all major joints. Extremities without clubbing, cyanosis or edema. NEUROLOGIC EXAM: Alert and oriented x 4. no focal sensory or strength deficits. PSYCHIATRIC: Mood normal. SKIN: detail exam as documented in skin assessment - Constitutional Vitals: Temp Pulse Resp BP Pulse Ox 97.8 F 56 L 18 114/67 100 12/13/21 08:36 12/13/21 08:36 12/13/21 05:16 12/13/21 08:36 12/13/21 08:36 General appearance: Present: no acute distress, well-nourished HEART Score - HEART Score Age: 45-65 Risk factors: > 3 risk factors or hx of atherosclerotic disease Troponin: Troponin T < 0.010 ng/mL (0.00-0.029) 12/12/21 23:11 Troponin: 1-3x normal limit - Critical Actions Critical Actions: 4-6 pts:12-16.6% risk of adverse cardiac event. Should be admitted Results - Labs CBC & Chem 7: 12/13/21 04:55 12/13/21 04:55 Labs: Laboratory Last Values WBC 8.5 K/mm3 (4.5-11.0) 12/13/21 04:55 RBC 4.61 M/mm3 (3.65-5.03) 12/13/21 04:55 Hgb 14.1 gm/dl (11.8-15.2) 12/13/21 04:55 Hct 43.6 % (35.5-45.6) 12/13/21 04:55 MCV 95 fl (84-94) H 12/13/21 04:55 MCH 31 pg (28-32) 12/13/21 04:55 MCHC 32 % (32-34) 12/13/21 04:55 RDW 13.2 % (13.2-15.2) 12/13/21 04:55 Plt Count 221 K/mm3 (140-440) 12/13/21 04:55 Lymph % (Auto) 29.4 % (13.4-35.0) 12/13/21 04:55 [place] % (Auto) 11.8 % (0.0-7.3) H 12/13/21 04:55 Eos % (Auto) 5.2 % (0.0-4.3) H 12/13/21 04:55 Baso % (Auto) 0.4 % (0.0-1.8) 12/13/21 04:55 Lymph # (Auto) 2.5 K/mm3 (1.2-5.4) 12/13/21 04:55 [place] # (Auto) 1.0 K/mm3 (0.0-0.8) H 12/13/21 04:55 Eos # (Auto) 0.4 K/mm3 (0.0-0.4) 12/13/21 04:55 Baso # (Auto) 0.0 K/mm3 (0.0-0.1) 12/13/21 04:55 Seg Neutrophils % 53.2 % (40.0-70.0) 12/13/21 04:55 Seg Neutrophils # 4.5 K/mm3 (1.8-7.7) 12/13/21 04:55 Sodium 135 mmol/L (137-145) L 12/12/21 16:58 Potassium 3.9 mmol/L (3.6-5.0) 12/12/21 16:58 Chloride 101.5 mmol/L (98-107) 12/12/21 16:58 Carbon Dioxide 23 mmol/L (22-30) 12/12/21 16:58 Anion Gap 14 mmol/L 12/12/21 16:58 BUN 14 mg/dL (9-20) 12/12/21 16:58 Creatinine 1.0 mg/dL (0.8-1.3) 12/12/21 16:58 Estimated GFR > 60 ml/min 12/12/21 16:58 BUN/Creatinine Ratio 14 % 12/12/21 16:58 Glucose 172 mg/dL (75-100) H 12/12/21 16:58 Calcium 8.7 mg/dL (8.4-10.2) 12/12/21 16:58 Total Bilirubin 0.40 mg/dL (0.1-1.2) 12/12/21 16:58 AST 13 units/L (5-40) 12/12/21 16:58 ALT 13 units/L (7-56) 12/12/21 16:58 Alkaline Phosphatase 94 units/L (35-129) 12/12/21 16:58 Troponin T < 0.010 ng/mL (0.00-0.029) 12/12/21 23:11 Total Protein 7.1 g/dL (6.3-8.2) 12/12/21 16:58 Albumin 3.9 g/dL (3.9-5) 12/12/21 16:58 Albumin/Globulin Ratio 1.2 % 12/12/21 16:58 Triglycerides 108 mg/dL (2-149) 12/13/21 04:55 Cholesterol 99 mg/dL (50-199) 12/13/21 04:55 LDL Cholesterol Direct 54 mg/dL (50-130) 12/13/21 04:55 HDL Cholesterol 32 mg/dL (40-59) L 12/13/21 04:55 Cholesterol/HDL Ratio 3.09 % 12/13/21 04:55 Active Medications - Current Medications Current Medications: Generic Name Dose Route Start Last Admin Trade Name Freq PRN Reason Stop Dose Admin Acetaminophen 650 mg 12/13/21 03:07 Acetaminophen 325 Mg Tab PO Q6H PRN Pain, Mild (1-3) Acetaminophen/Butalbital/Caffeine 1 tab 12/13/21 03:09 Butalb/Acetaminophen/Caffeine Tab PO Q6H PRN Headache Acetazolamide 250 mg 12/13/21 10:00 Acetazolamide 250 Mg Tab PO BID [facility] Aspirin 81 mg 12/13/21 10:00 Aspirin 81 Mg Tab Chew PO QDAY [facility] Atorvastatin Calcium 40 mg 12/13/21 22:00 Atorvastatin 40 Mg Tab PO QHS [facility] Cetirizine HCl 5 mg 12/13/21 10:00 Cetirizine 10 Mg Tab PO QDAY [facility] Clopidogrel Bisulfate 75 mg 12/13/21 10:00 Clopidogrel 75 Mg Tab PO QDAY [facility] Dextrose 0 ml 12/13/21 03:11 Dextrose 50% In Water (25gm) 50 Ml Syringe IV Q30MIN PRN Hypoglycemia Protocol Heparin Sodium (Porcine) 5,000 unit 12/13/21 10:00 Heparin 5,000 Unit/1 Ml Vial SUB-Q Q12HR [facility] Sodium Chloride 1,000 mls @ 100 mls/hr 12/13/21 03:15 Nacl 0.9% 1000 Ml IV DIRECT [facility] Insulin Human Lispro 0 unit 12/13/21 06:00 12/13/21 05:57 Insulin Lispro 100 Unit/Ml SUB-Q Not Given Q6HR [facility] Protocol Isosorbide Mononitrate 30 mg 12/13/21 10:00 Isosorbide Mononitrate Er 30 Mg Tab PO QDAY [facility] Lisinopril 2.5 mg 12/13/21 10:00 Lisinopril 5 Mg Tab PO QDAY [facility] Morphine Sulfate 2 mg 12/13/21 03:07 Morphine 2 Mg/1 Ml Inj IV Q5MIN PRN Chest Pain unrelieved by NTG Nitroglycerin 0.4 mg 12/13/21 03:07 Nitroglycerin 0.4 Mg Tab Subl SL Q5M PRN Chest Pain Pantoprazole Sodium 40 mg 12/13/21 10:00 Pantoprazole 40 Mg Tab PO QDAY [facility] Sodium Chloride 10 ml 12/13/21 03:07 Sodium Chloride 0.9% 10 Ml Flush Syringe IV PRN PRN LINE FLUSH Tramadol HCl 50 mg 12/13/21 03:07 Tramadol 50 Mg Tab PO Q6H PRN Pain, Moderate (4-6)
[2021-12-13 08:50] LABS: BUN/Creatinine Ratio 16; Blood Urea Nitrogen 14 mg/dL (9-20); Calcium 8.9 mg/dL (8.4-10.2); Hemolysis Index 46
--- NOTE | 2021-12-13 09:05 | Electrocardiograph Report ---
[facility] Test Date: 2021-12-12 Test Time: 16:47:22 Pat Name: DARIEL ESCOBEDO Department: Room: A466 1 Gender: M Healthcare Or Medical: JM : 1965 Requested By: FELIPE SWEENEY Order Number: [id number] Reading MD: Smith Tripathi Measurements Intervals [place] Rate: 57 P: 65 [place]: 171 QRS: 9 QRSD: 81 T: 27 QT: 409 QTc: 400 Interpretive Statements Sinus rhythm Compared to ECG 05/06/2021 09:11:55 No significant changes Electronically Signed On 12-13-2021 9:05:03 EDT by Smith Tripathi
--- NOTE | 2021-12-13 09:06 | Electrocardiograph Report ---
[facility] Test Date: 2021-12-13 Test Time: 06:48:44 Pat Name: DARIEL ESCOBEDO Department: Room: A466 1 Gender: M [place] Electronic: FAISAL : 1965 Requested By: HEATHER PARK Order Number: [id number] Reading MD: Smith Tripathi Measurements Intervals [place] Rate: 49 P: 62 [place]: 193 QRS: 16 QRSD: 81 T: 36 QT: 426 QTc: 386 Interpretive Statements Sinus bradycardia Compared to ECG 12/12/2021 16:47:22 Sinus rhythm no longer present Electronically Signed On 12-13-2021 9:05:47 EDT by Smith Tripathi
[2021-12-13] MEDS: ASPIRIN 81 MG TAB CHEW PO SCH (10:24)
[2021-12-13] MEDS: PANTOPRAZOLE 40 MG TAB PO SCH (10:24)
[2021-12-13] MEDS: CETIRIZINE 10 MG TAB PO SCH (10:25)
[2021-12-13] MEDS: LISINOPRIL 5 MG TAB PO SCH (10:25)
[2021-12-13] MEDS: CLOPIDOGREL 75 MG TAB PO SCH (10:25)
[2021-12-13] MEDS: HEPARIN 5,000 UNIT/1 ML VIAL SUB-Q SCH ×2 (10:26→22:13)
[2021-12-13] MEDS: acetaZOLAMIDE 250 MG TAB PO SCH ×2 (10:29→22:22)
--- NOTE | 2021-12-13 12:07 | Consultation ---
History of Present Illness Consult date: 12/13/21 Requesting physician: HEATHER PARK Consult reason: chest pain History of present illness: 56-year-old male with a past medical history of coronary artery disease s/p PCI, ischemic cardiomyopathy, diabetes report with several complaints over the past week. Patient reports that over this timeframe he has had headaches, weakness, intermittent chest pain, and dizziness. Patient reports that he went to the urgent care 2 to 3 days ago for a COVID test and was found to be COVID-negative. Patient describes his chest pain as sharp right sided, worse with palpation, and worse with inspiration. He denies worsening with exertion nausea, vomiting, diaphoresis. Patient also reports some dizziness that he states occurs when he is doing activity. Patient also reports lower leg pain that he is unable to d escribe. He denies any falls or loss of consciousness. Patient came to the ED to be further evaluated. Of note patient was in the hospital and this past April with similar complaint. Patient is followed by Dr. Guido of our practice. Cardiology is consulted for chest pain. Past History Past Medical History: acute [place], CAD, diabetes, hypertension Past Surgical History: Other (Coronary stent October 2019, cataract surgery) Social history: no significant social history, smoking (former) Family history: diabetes, hypertension Medications and Allergies Allergies Allergy/AdvReac Type Severity Reaction Status Date / Time No Known Allergies Allergy Verified 12/13/21 11:10 Home Medications Medication Instructions Recorded Confirmed Last Taken Type Atorvastatin [Lipitor] 40 mg PO QHS 11/02/19 12/13/21 05/05/21 History Esomeprazole Magnesium [NexIUM] 40 mg PO QDAY 11/02/19 12/13/21 05/05/21 History Insulin Glargine,Hum.rec.anlog 15 units SQ QHS 11/02/19 12/13/21 05/05/21 History [Lantus Solostar] Insulin Lispro [Humalog 100 11 units SQ TIDAC 11/02/19 12/13/21 05/05/21 History UNITS/ML Kwikpen] Aspirin [Aspirin BABY CHEW TAB] 81 mg PO QDAY tab.chew 11/03/19 12/13/21 05/05/21 Rx Clopidogrel [Plavix] 75 mg PO QDAY #90 tablet 11/03/19 12/13/21 05/05/21 Rx Levocetirizine Dihydrochloride 5 mg PO QDAY 05/08/21 12/13/21 05/06/21 History [Xyzal] Metformin HCl [Metformin HCl ER] 1,000 mg PO BID 05/08/21 12/13/21 05/05/21 History Nitroglycerin [Nitrostat] 0.4 mg SL Q5M PRN 05/08/21 12/13/21 Unknown History Ranolazine [Ranexa] 1,000 mg PO BID 05/08/21 12/13/21 05/05/21 History lisinopriL [Zestril TAB] 2.5 mg PO QDAY tablet 05/08/21 12/13/21 Unknown Rx Brimonidine/Timolol 0.2-0.5% 1 drops OS Q12H 12/13/21 12/13/21 Unknown History [Combigan 0.2-0.5%] Empagliflozin [Jardiance] 10 mg PO QDAY 12/13/21 12/13/21 Unknown History Active Meds: Active Medications Acetaminophen (Acetaminophen 325 Mg Tab) 650 mg PO Q6H PRN PRN Reason: Pain, Mild (1-3) Acetaminophen/Butalbital/Caffeine (Butalb/Acetaminophen/Caffeine Tab) 1 tab PO Q6H PRN PRN Reason: Headache Acetazolamide (Acetazolamide 250 Mg Tab) 250 mg PO BID [facility] Last Admin: 12/13/21 10:29 Dose: Not Given Aspirin (Aspirin 81 Mg Tab Chew) 81 mg PO QDAY [facility] Last Admin: 12/13/21 10:24 Dose: 81 mg Atorvastatin Calcium (Atorvastatin 40 Mg Tab) 40 mg PO QHS [facility] Cetirizine HCl (Cetirizine 10 Mg Tab) 5 mg PO QDAY [facility] Last Admin: 12/13/21 10:25 Dose: 5 mg Clopidogrel Bisulfate (Clopidogrel 75 Mg Tab) 75 mg PO QDAY [facility] Last Admin: 12/13/21 10:25 Dose: 75 mg Dextrose (Dextrose 50% In Water (25gm) 50 Ml Syringe) 0 ml IV Q30MIN PRN; Protocol PRN Reason: Hypoglycemia Heparin Sodium (Porcine) (Heparin 5,000 Unit/1 Ml Vial) 5,000 unit SUB-Q Q12HR [facility] Last Admin: 12/13/21 10:26 Dose: 5,000 unit Sodium Chloride (Nacl 0.9% 1000 Ml) 1,000 mls @ 100 mls/hr IV DIRECT [facility] Insulin Human Lispro (Insulin Lispro 100 Unit/Ml) 0 unit SUB-Q Q6HR [facility]; Protocol Last Admin: 12/13/21 05:57 Dose: Not Given Isosorbide Mononitrate (Isosorbide Mononitrate Er 30 Mg Tab) 30 mg PO QDAY [facility] Last Admin: 12/13/21 10:35 Dose: Not Given Lisinopril (Lisinopril 5 Mg Tab) 2.5 mg PO QDAY [facility] Last Admin: 12/13/21 10:25 Dose: 2.5 mg Morphine Sulfate (Morphine 2 Mg/1 Ml Inj) 2 mg IV Q5MIN PRN PRN Reason: Chest Pain unrelieved by NTG Nitroglycerin (Nitroglycerin 0.4 Mg Tab Subl) 0.4 mg SL Q5M PRN PRN Reason: Chest Pain Pantoprazole Sodium (Pantoprazole 40 Mg Tab) 40 mg PO QDAY [facility] Last Admin: 12/13/21 10:24 Dose: 40 mg Ranolazine (Ranolazine Er 500 Mg Tab 12hr) 1,000 mg PO BID [facility] Sodium Chloride (Sodium Chloride 0.9% 10 Ml Flush Syringe) 10 ml IV PRN PRN PRN Reason: LINE FLUSH Tramadol HCl (Tramadol 50 Mg Tab) 50 mg PO Q6H PRN PRN Reason: Pain, Moderate (4-6) Review of Systems Constitutional: weakness, no weight loss, no weight gain, no fever, no chills Ears, nose, mouth and throat: sinus pressure Cardiovascular: chest pain, no orthopnea, no palpitations, no edema, no shortness of breath, no dyspnea on exertion Respiratory: pain on inspiration, no shortness of breath, no dyspnea on exertion Gastrointestinal: no abdominal pain, no nausea, no vomiting Musculoskeletal: other (Leg pain) Integumentary: no rash, no pruritis, no redness Neurological: weakness Psychiatric: no anxiety, no memory loss Endocrine: no cold intolerance, no heat intolerance Physical Examination Vital Signs Temp Pulse Resp BP Pulse Ox 98.9 F 57 L 16 114/65 100 12/12/21 16:50 12/12/21 16:50 12/12/21 16:50 12/12/21 16:50 12/12/21 16:50 General appearance: no acute distress Neck: Positive: trachea midline Cardiac: Positive: Reg Rate and Rhythm Lungs: Positive: Normal Breath Sounds Neuro: Positive: Grossly Intact Abdomen: Positive: Soft Skin: Negative: Rash, Suspicious Lesions, Ulceration Extremities: Present: upper extr. pulses. Absent: edema Results 12/13/21 04:55 12/13/21 04:55 Cardiac Enzymes 12/12/21 Range/Units 16:58 AST 13 (5-40) units/L Lipids 12/13/21 Range/Units 04:55 Triglycerides 108 (2-149) mg/dL Cholesterol 99 (50-199) mg/dL HDL Cholesterol 32 L (40-59) mg/dL Cholesterol/HDL Ratio 3.09 % CBC 12/12/21 12/13/21 Range/Units 16:58 04:55 WBC 9.6 8.5 (4.5-11.0) K/mm3 RBC 4.60 4.61 (3.65-5.03) M/mm3 Hgb 14.3 14.1 (11.8-15.2) gm/dl Hct 43.0 43.6 (35.5-45.6) % Plt Count 219 221 (140-440) K/mm3 Lymph # (Auto) 2.6 2.5 (1.2-5.4) K/mm3 [place] # (Auto) 0.9 H 1.0 H (0.0-0.8) K/mm3 Eos # (Auto) 0.4 0.4 (0.0-0.4) K/mm3 Baso # (Auto) 0.0 0.0 (0.0-0.1) K/mm3 Comprehensive Metabolic Panel 12/12/21 12/13/21 Range/Units 16:58 04:55 Sodium 135 L 138 (137-145) mmol/L Potassium 3.9 4.1 (3.6-5.0) mmol/L Chloride 101.5 103.9 (98-107) mmol/L Carbon Dioxide 23 23 (22-30) mmol/L BUN 14 14 (9-20) mg/dL Creatinine 1.0 0.9 (0.8-1.3) mg/dL Glucose 172 H 134 H (75-100) mg/dL Calcium 8.7 8.9 (8.4-10.2) mg/dL AST 13 (5-40) units/L ALT 13 (7-56) units/L Alkaline Phosphatase 94 (35-129) units/L Total Protein 7.1 (6.3-8.2) g/dL Albumin 3.9 (3.9-5) g/dL - Imaging and Cardiology Echo: report reviewed EKG interpretations - Telemetry EKG Rhythm: Sinus Rhythm - EKG Sinus rhythms and dysrhythmias: sinus rhythm Assessment and Plan 56-year-old male with a past medical history of coronary artery disease s/p PCI, ischemic cardiomyopathy, diabetes report with several complaints over the past week. Patient reports that over this timeframe he has had headaches, weakness, intermittent chest pain, and dizziness. CAD s/p PCI HTN Ischemic cardiomyopathy Dizziness Diabetes Lexiscan MPI stress 05/08/2021-no significant ischemia noted fixed perfusion defect noted in inferior and inferior lateral segments normal LV systolic function noted Echo 10/11/2020-EF 45 to 50%, inferior lateral wall appears moderately hypokinetic, RV systolic function is normal Cardiac cath 04/04/[id number] LV with akinetic to dyskinetic post anterior lateral wall. Overall EF is preserved in the range of 50 to 55%. Widely patent mid LAD stent noted with 50% distal circumflex lesion and dominant circumflex artery. However distal vessel is small caliber less than 2 mm Outpatient medications: Lisinopril 2.5 mg p.o. daily, Imdur 30 mg p.o. daily, Ranexa 1000 mg p.o. twice daily, Plavix, atorvastatin 40 mg p.o. nightly, Plan: EKG shows sinus bradycardia 57 no acute ischemic changes. Troponins negative x2 . Patient currently chest pain-free. AMI ruled out Patient's chest pain is atypical Telemetry reviewed patient has episodes of sinus bradycardia 40s to 50s however remained hemodynamically stable will continue to monitor Due to patient's complaint of leg pain and atypical chest pain D-dimer ordere zenon ccame back elevated will order VQ to rule out PE Patient had recent stress test this past April and cath in 2019 will hold ischemic eval at this time. Will repeat cardiac enzymes patient to be n.p.o. after midnight Will resume outpatient medications Orthostatic vital signs pending Patient in conjunction with Dr. Tripathi who agrees with this plan of care - Patient Problems (1) Coronary artery disease Current Visit: No Status: Acute (2) Near syncope Current Visit: No Status: Acute (3) CAD (coronary artery disease) Current Visit: No Status: Chronic (4) Diabetes Current Visit: No Status: Chronic (5) Hyperlipidemia Current Visit: No Status: Chronic Qualifiers: (6) Sinus bradycardia Current Visit: No Status: Chronic (7) Stented coronary artery Current Visit: No Status: Chronic (8) Cardiomyopathy Current Visit: No Status: Resolved
[2021-12-13] MEDS ORDERED: INSULIN GLARGINE 100 UNITS/ML SUB-Q ONE (14:34)
--- NOTE | 2021-12-13 14:50 | Nuclear Medicine Report ---
NUCLEAR MEDICINE PERFUSION LUNG SCAN INDICATION / CLINICAL INFORMATION: Chest pain. Shortness of breath. Rule out PTE. TECHNIQUE: 5.1 mCi of Tc-99m MAA were given by IV. COMPARISON: Chest radiograph dated 12/12/21 5:15 PM. FINDINGS: PERFUSION: No significant perfusion defects. ADDITIONAL FINDINGS: The accompanying chest radiograph is clear. IMPRESSION: Low probability for pulmonary embolism. Signer Name: Javier Jung MD Signed: 12/13/2021 2:45 PM Workstation Name: [id number]
[2021-12-13] MEDS: RANOLAZINE ER 500 MG TAB 12HR PO SCH (22:13)
[2021-12-14] MEDS: INSULIN LISPRO 100 UNIT/ML SUB-Q SCH ×3 (06:00→14:30)
[2021-12-14] MEDS ORDERED: COMBIGAN 0.2-0.5% OPHTH SOLN OS SCH (08:00)
--- NOTE | 2021-12-14 10:09 | Electrocardiograph Report ---
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
[2021-12-14] MEDS: HEPARIN 5,000 UNIT/1 ML VIAL SUB-Q SCH (10:57)
[2021-12-14] MEDS: PANTOPRAZOLE 40 MG TAB PO SCH (10:57)
[2021-12-14] MEDS: ASPIRIN 81 MG TAB CHEW PO SCH (10:57)
[2021-12-14] MEDS: CETIRIZINE 10 MG TAB PO SCH (10:57)
[2021-12-14] MEDS: RANOLAZINE ER 500 MG TAB 12HR PO SCH (10:58)
[2021-12-14] MEDS: CLOPIDOGREL 75 MG TAB PO SCH (11:00)
[2021-12-14] MEDS: acetaZOLAMIDE 250 MG TAB PO SCH (11:03)
[2021-12-14] MEDS: LISINOPRIL 5 MG TAB PO SCH (11:04)
--- NOTE | 2021-12-14 11:25 | Progress Note ---
Assessment and Plan 56-year-old male with a past medical history of coronary artery disease s/p PCI, ischemic cardiomyopathy, diabetes report with several complaints over the past week. Patient reports that over this timeframe he has had headaches, weakness, intermittent chest pain, and dizziness. CAD s/p PCI HTN Ischemic cardiomyopathy Dizziness Diabetes Lexiscan MPI stress 05/08/2021-no significant ischemia noted fixed perfusion defect noted in inferior and inferior lateral segments normal LV systolic function noted Echo 10/11/2020-EF 45 to 50%, inferior lateral wall appears moderately hypokinetic, RV systolic function is normal Cardiac cath 04/04/[id number] LV with akinetic to dyskinetic post anterior lateral wall. Overall EF is preserved in the range of 50 to 55%. Widely patent mid LAD stent noted with 50% distal circumflex lesion and dominant circumflex artery. However distal vessel is small caliber less than 2 mm Outpatient medications: Lisinopril 2.5 mg p.o. daily, Imdur 30 mg p.o. daily, Ranexa 1000 mg p.o. twice daily, Plavix, atorvastatin 40 mg p.o. nightly, Plan: EKG shows sinus bradycardia 57 no acute ischemic changes. Troponins negative x3. Patient currently chest pain-free. AMI ruled out Patient's chest pain is atypical Telemetry reviewed patient has episodes of sinus bradycardia 40s to 50s however remained hemodynamically stable VQ negative for PE Patient had recent stress test this past April and cath in 2019 will hold ischemic eval at this time. Will repeat cardiac enzymes patient to be n.p.o. after midnight Continue outpatient medications Cardiac status otherwise stable for discharge Patient to follow-up with Dr. Guido, [facility] civil design specialist, on 12/22/2021 on 10:45am in our [place] location. Phone #[phone] Patient in conjunction with Dr. Tripathi who agrees with this plan of care - Patient Problems (1) Coronary artery disease Current Visit: No Status: Acute (2) Near syncope Current Visit: No Status: Acute (3) CAD (coronary artery disease) Current Visit: No Status: Chronic (4) Diabetes Current Visit: No Status: Chronic (5) Hyperlipidemia Current Visit: No Status: Chronic Qualifiers: (6) Sinus bradycardia Current Visit: No Status: Chronic (7) Stented coronary artery Current Visit: No Status: Chronic Subjective Date of service: 12/14/21 Principal diagnosis: atypical chest pain Interval history: Patient resting in bed in no acute distress. Patient reports feeling well this a.m. and denies any current complaints Sinus to sinus bradycardia trending in the 50s-60s with episodes into the 40s overnight Objective Vital Signs Temp Pulse Resp BP Pulse Ox 12/14/21 11:04 55 L 12/14/21 11:00 55 L 12/14/21 08:30 98.1 F 58 L 18 128/77 100 12/14/21 03:22 98.0 F 55 L 18 115/69 99 12/14/21 03:00 20 98 12/13/21 23:12 98.1 F 57 L 16 114/70 97 12/13/21 19:21 98.0 F 56 L 18 115/64 100 12/13/21 16:14 99.0 F 60 105/62 99 12/13/21 15:52 20 98 12/13/21 13:00 52 L - Physical Examination General: No Apparent Distress HEENT: Positive: PERRL Neck: Positive: trachea midline Cardiac: Positive: Reg Rate and Rhythm Lungs: Positive: Normal Breath Sounds Neuro: Positive: Grossly Intact Abdomen: Positive: Soft Skin: Negative: Rash, Suspicious Lesions, Ulceration Extremities: Present: upper extr. pulses. Absent: edema - Imaging and Cardiology Echo: report reviewed - Telemetry EKG Rhythm: Sinus Bradycardia - EKG Sinus rhythms and dysrhythmias: sinus rhythm
--- NOTE | 2021-12-14 12:02 | Discharge Summary ---
Providers - Providers Date of Admission: 12/13/21 03:07 Date of discharge: 12/14/21 Attending physician: MANUEL BRANDT MD 12/13/21 Consult to Cardiac Rehabilitation [CONS] Routine Reason For Exam: Phase I 12/13/21 03:07 Consult to Cardiology [CONS] Routine Consulting Provider: LUCERO MATTHEW Reason For Exam: acs 12/13/21 03:12 Consult to Dietitian/Nutrition [CONS] Routine Physician Instructions: Reason For Exam: Reason for Consult: Diet education Primary care physician: [facility] Hospitalization Reason for admission: Chest pain Condition: Stable Hospital course: History of present illness: 56-year-old male with history of diabetes, hypertension, CAD, angina, CHF, coronary artery stents was brought to the emergency room because of chest pain for 1 week. Chest pain is intermittent pain in his right chest, chest, "I just do not feel myself". Pain is nonradiating and, reports associating dizziness, sometimes will break out in sweats. States has been going on for a week, not improved with nothing or worsens with nothing, no shortness of breath, no swel ling of the extremities, no fever cough cold congestion, no headache, no drug use In the emergency room initial cardiac enzyme is negative troponin is 0.010. We will admit the patient will consult cardiology for evaluation Hospital course: 12/13: Chest pain resolved on my encounter. patient has prior NM stress and echo completed in apr 2021. Both were normal studies. D/w cardiology who recommends observe overnight. Troponin and d-dimer ordered. Resume home meds. Obtain orhtostatic vitals. Anticipate d/c tomorrow. 12/14: D-dimer yesterday was noted to be elevated. Patient underwent VQ scan which demonstrated low probability for pulmonary embolism. Troponin this admission negative x4. Patient will be discharged home today with instructions to follow-up with cardiology outpatient. He was complaining of leg pain today which I suspect to be neuropathy based on symptomology reported. He will be discharged home with prescription for gabapentin. He was advised to resume his home cardiac medications. He is advised to follow-up with his primary care doctor as an outpatient. Assessment and Plan: (1) Acute coronary syndrome Current Visit: No Status: Acute Plan to address problem: -Admit the patient to the medical telemetry. -EKG no acute findings of ischemia. -Aspirin 81 mg p.o. daily. Plavix 75 mg p.o. daily. Lipitor 40 mg p.o. daily. -Serial cardiac enzymes negative x 3 thus far. -Cardiology evaluation: follows with Dr Lata JUAREZ, [facility] consulted. -Lexiscan MPI stress 05/08/2021-no significant ischemia noted fixed perfusion defect noted in inferior and inferior lateral segments normal LV systolic function noted -Echo 10/11/2020-EF 45 to 50%, inferior lateral wall appears moderately hypokinetic, RV systolic function is normal -Cardiac cath 04/04/[id number] LV with akinetic to dyskinetic post anterior lateral wall. Overall EF is preserved in the range of 50 to 55%. Widely patent mid LAD stent noted with 50% distal circumflex lesion and dominant circumflex artery. However distal vessel is small caliber less than 2 mm -Ortho static vitals ordered - D-dimer ordered due to c/o leg pain, if elevated, may consider CTA chest -Resume home Lisinopril 2.5 mg p.o. daily, Imdur 30 mg p.o. daily, Ranexa 1000 mg p.o. twice daily, Plavix, atorvastatin 40 mg p.o. nightly -Avoid BB at tihs time, patient Sinus josep on tele. (2) Coronary artery disease Current Visit: No Status: Acute Plan to address problem: Aspirin 81 mg p.o. daily. Plavix 75 mg p.o. daily. Lipitor 40 mg p.o. daily. Serial cardiac enzymes. Echocardiogram. Cardiology evaluation (3) Diastolic CHF Current Visit: No Status: Acute Qualifiers: Plan to address problem: Stable. Avoid fluid overload. Daily weight. Maintain input output. Echocardiogram. Continue home medication. Cardiology evaluation (4) Diabetes Current Visit: No Status: Chronic Plan to address problem: Accu-Chek every 6 hours with Humalog moderate dose coverage. Continue home medication. Diabetic education (5) GERD (gastroesophageal reflux disease) Current Visit: No Status: Chronic Qualifiers: Plan to address problem: Protonix 40 mg p.o. daily. We will continue the home medication (6) Hyperlipidemia Current Visit: No Status: Chronic Qualifiers: Plan to address problem: Lipid panel: LDL: 54 Lipitor 40 mg p.o. daily. We will recheck the lipid panel (7) DVT prophylaxis Current Visit: Yes Status: Acute Plan to address problem: Heparin 5000 units subcu every 12 hours for DVT prophylaxis. Protonix 40 mg p.o. daily for GI prophylaxis. Patient is a full code #Advance care planning Disease education conducted, care plan discussed, diagnoses discussed, prognosis discussed, patient is full code, patient acknowledges understanding and agree with care plan, +30 minutes. Disposition: 01 HOME / SELF CARE / HOMELESS Final Discharge Diagnosis (Prints w/discharge instructions): Chest pain Time spent for discharge: 35 Core Measure Documentation - Palliative Care Palliative Care/ Comfort Measures: Not Applicable - Core Measures Any of the following diagnoses?: none Exam - Physical Exam Narrative exam: Physical Exam: VITAL SIGNS: Reviewed. GENERAL: The patient appears normally developed, Vital signs as documented. HEAD: No signs of head trauma. EYES: Pupils are equal. Extraocular motions intact. EARS: Hearing grossly intact. MOUTH: Oropharynx is normal. NECK: No adenopathy, no JVD. CHEST: Chest with clear breath sounds bilaterally. No wheezes, rales, or rhonchi. CARDIAC: Regular rate and rhythm. S1 and S2, without murmurs, gallops, or rubs. VASCULAR: No Edema. Peripheral pulses normal and equal in all extremities. ABDOMEN: Soft, non tender and non distended. No rebound or guarding, and no masses palpated. Bowel Sounds normal. MUSCULOSKELETAL: Good range of motion of all major joints. Extremities without clubbing, cyanosis or edema. NEUROLOGIC EXAM: Alert and oriented x 4. no focal sensory or strength deficits. PSYCHIATRIC: Mood normal. SKIN: detail exam as documented in skin assessment - Constitutional Vitals: Temp Pulse Resp BP Pulse Ox 98.1 F 55 L 18 128/77 100 12/14/21 08:30 12/14/21 11:04 12/14/21 08:30 12/14/21 08:30 12/14/21 08:30 Plan Follow up with: PRIMARY MD SNEHA [Primary Care Provider] - 3-5 Days Prescriptions: Gabapentin 100 mg PO Q8HR 30 Days #90 capsule
[2021-12-14 12:23] VITALS: BP 107/61
[2021-12-14] MEDS ORDERED: GABAPENTIN 100 MG CAP PO SCH (14:00)
[2021-12-17] MEDS ORDERED: ASPIRIN 325 MG TAB PO ONE (20:19)
== END 2021-12-14 22:16 | disposition home or self-care (01) | DRG 313 ==
LOC: ED 16:07 → 4A 12-13 03:07
PROVIDERS: ADMIT Hospitalist; ATTEND Internal Medicine
DX: R07.89 Other chest pain (principal); I50.30 Unspecified diastolic (congestive) heart failure; E11.9 Type 2 diabetes mellitus without complications; I25.5 Ischemic cardiomyopathy; I11.0 Hypertensive heart disease with heart failure; K21.9 Gastro-esophageal reflux disease without esophagitis; I25.10 Atherosclerotic heart disease of native coronary artery without angina pectoris; E78.5 Hyperlipidemia, unspecified; R55 Syncope and collapse; R00.1 Bradycardia, unspecified; Z98.42 Cataract extraction status, left eye; Z98.41 Cataract extraction status, right eye; Z79.899 Other long term (current) drug therapy; Z79.4 Long term (current) use of insulin; I25.2 Old myocardial infarction; Z79.82 Long term (current) use of aspirin; Z83.3 Family history of diabetes mellitus; Z82.49 Family history of ischemic heart disease and other diseases of the circulatory system
CPT/HCPCS: 36415; 71046; 78580; 80048; 80053; 80061; 84484; 85025; 85379; 93005; 99406; G0378; Q9967; A9540; J1644; J1815; J7030